=== PATIENT | female | born 1955 | race Caucasian/White ===

== ENCOUNTER 2018-07-27 00:38 | Outpatient (CLI) | payer MEDICARE, BC, SELFPAY ==
--- NOTE | 2018-07-27 10:26 | DI.MAMMO_ITS ---
SYMPTOM/DIAGNOSIS: SCREENING, Z12.31 MAMMOGRAMS: Mammograms were interpreted according to the usual protocol including computer analysis with CAD system, tomosynthesis and C view imaging. Comparison is made with prior examinations. Breast density, Category B. No masses or microcalcifications are seen. There is nothing to suggest malignancy. IMPRESSION: Negative mammogram. Routine screening is recommended. Category 1B. MQSA ASSESSMENT OF FINDINGS: Negative. Category 1. Patient will receive a letter notifying them of these results. BI-RADS category B. There are scattered areas of fibroglandular density.
== END 2018-07-27 00:58 ==
PROVIDERS: Visit Provider Nurse Practitioner Family
DX: Z12.31 Encounter for screening mammogram for malignant neoplasm of breast (principal)
CPT/HCPCS: 77063; 77067

== ENCOUNTER 2018-08-17 09:47 | Outpatient (REF) | payer MEDICARE, BC, SELFPAY ==
--- NOTE | 2018-08-17 09:30 | SKI_PTH ---
PATIENT: Felicita Velazquez LOC: [facility] U#:[id number] AGE/SX: 63/F ROOM: RE08/17/[address]: Dorina Dubois : 1955 BED: DIS: 08/17/2018 SPEC #: [id number] RECD: 08/17/18 12:59 STATUS: WARREN REAmira #: [id number] GITA: 08/17/18 09:[address]: Dorina Dubois DEPT: Surgical Specimen RECD BY: Ethel Pratt ENTERED: 08/17/18 13:00 SP TYPE: KERRIE ELMORE DR: Leeanna Conn Tissues: 1 - SKIN BIOPSY(SHAVE/PUNCH) 2 - SKIN BIOPSY(SHAVE/PUNCH) Procedures: SKIN LEVEL 4 Comments: [id number]
[2018-08-17 13:00] LABS: Cholesterol 215 mg/dL (50-200); Glucose 104 mg/dL (70-100); HDL Cholesterol 67 mg/dL (40-60); LDL CHOLESTEROL 129 mg/dL (<100); TSH (W/Ref FT4) 1.34 uIU/mL (0.358-3.74); Triglyceride 108 mg/dL (30-150)
== END 2018-08-17 10:07 ==
LOC: NCHCN 09:47
PROVIDERS: Visit Provider Nurse Practitioner
DX: E66.9 Obesity, unspecified (principal); Z68.30 Body mass index [BMI] 30.0-30.9, adult; Z13.1 Encounter for screening for diabetes mellitus; Z13.6 Encounter for screening for cardiovascular disorders; L82.1 Other seborrheic keratosis
CPT/HCPCS: 80061; 82947; 83721; 84443; 88305

== ENCOUNTER 2018-10-30 12:12 | Outpatient (REF) | payer MEDICARE, BC, SELFPAY ==
[2018-10-30 13:55] LABS: ALT 26 U/L (12-78); AST 19 U/L (15-37); Albumin 3.9 g/dL (3.4-5.0); Alkaline Phosphatase 83 U/L (46-116); Anion Gap 6.5 mmol/L (3-11); BUN 11 mg/dL (7-18); Bilirubin, Total 0.5 mg/dL (0.2-1.0); CO2 31.5 mmol/L (21.0-32.0); CREATININE 0.62 mg/dL (0.55-1.02); Calcium 9.4 mg/dL (8.5-10.1); Chloride 105 mmol/L (98-107); Glucose 99 mg/dL (70-100); Potassium 4.1 mmol/L (3.5-5.1); Sodium 143 mmol/L (136-145); Total Protein 7.1 g/dL (6.4-8.2)
== END 2018-10-30 12:32 ==
LOC: NCHCN 12:12
PROVIDERS: Visit Provider Nurse Practitioner
DX: Z01.818 Encounter for other preprocedural examination (principal); R69 Illness, unspecified
CPT/HCPCS: 80053

== ENCOUNTER 2018-12-25 13:58 | Outpatient (REF) | payer MEDICARE, BC, SELFPAY | END 2018-12-25 14:18 | LOC: NCHCN 13:58 | PROVIDERS: PCP Nurse Practitioner Family; Visit Provider Nurse Practitioner Family | DX: R30.0 Dysuria (principal) | CPT/HCPCS: 87077; 87086; 87186 ==

== ENCOUNTER 2020-08-25 14:09 | Outpatient (REF) | payer MEDICARE, BC, SELFPAY ==
[2020-08-25 20:57] LABS: HCT 41.1 % (36.0-46.0); MCH 28.5 pg (27.0-33.0); MCHC 31.6 % (32.0-36.0); MCV 90.1 fL (80-95); MPV 10.8 fL (8.0-11.0); Platelet Count 167 10^3/uL (130-400); RBC 4.56 10^6/uL (3.93-5.22); RDW 12.7 % (11.7-14.6); RDW-SD 41.9 fL; WBC 5.26 10^3/uL (4.4-10.8)
[2020-08-25 21:21] LABS: ALT 24 U/L (14-59); AST 17 U/L (15-37); Albumin 4.1 g/dL (3.4-5.0); Alkaline Phosphatase 91 U/L (46-116); Anion Gap 9.1 mmol/L (3-11); BUN 15 mg/dL (7-18); Bilirubin, Total 0.5 mg/dL (0.2-1.0); CO2 29.9 mmol/L (21.0-32.0); CREATININE 0.78 mg/dL (0.55-1.02); Calcium 9.3 mg/dL (8.5-10.1); Calculated LDL 160 mg/dL (<100); Chloride 108 mmol/L (98-107); Cholesterol 243 mg/dL (<200); Glucose 99 mg/dL (74-106); HDL Cholesterol 59 mg/dL (40-60); Potassium 4.2 mmol/L (3.5-5.1); Sodium 147 mmol/L (136-145); Total Protein 7.4 g/dL (6.4-8.2); Triglyceride 120 mg/dL (<150)
[2020-08-25 21:38] LABS: Hemoglobin A1C 5.7 % (<5.7)
== END 2020-08-25 14:29 ==
LOC: NCHCN 14:09
PROVIDERS: PCP Nurse Practitioner Family; Visit Provider Family Medicine
DX: R73.03 Prediabetes (principal); R79.89 Other specified abnormal findings of blood chemistry
CPT/HCPCS: 80053; 80061; 85027; 83036

== ENCOUNTER 2020-09-05 13:53 | Outpatient (REF) | payer MEDICARE, BC, SELFPAY ==
[2020-09-05 22:19] LABS: ESR 26 mm/hr (0-30)
[2020-09-18 16:21] LABS: ANA Interpretation Positive (Negative)
[2020-09-18 16:24] LABS: ANA Titer Pattern 1:160 Speckled
[2020-09-19 15:23] LABS: Rheumatoid Factor <15 IU/mL (<15)
== END 2020-09-05 14:13 ==
LOC: NCHCN 13:53
PROVIDERS: PCP Nurse Practitioner Family; Visit Provider Family Medicine
DX: M25.50 Pain in unspecified joint (principal)
CPT/HCPCS: 85652; 86038; 86431

== ENCOUNTER 2020-09-15 14:52 | Outpatient (REF) | payer MEDICARE, BC, SELFPAY ==
[2020-09-26 13:03] LABS: Rheumatoid Factor <15 IU/mL (<15)
[2020-09-26 13:05] LABS: ANA Interpretation 0.3 U (Negative)
== END 2020-09-15 15:12 ==
LOC: NCHCN 14:52
PROVIDERS: PCP Nurse Practitioner Family; Visit Provider Family Medicine
DX: M25.50 Pain in unspecified joint (principal)
CPT/HCPCS: 86038; 86431

== ENCOUNTER → 2022-04-09 01:58 | Outpatient (CLI) | payer MEDICARE, BC, SELFPAY ==
--- NOTE | 2022-04-09 09:45 | DI.MAMMO_ITS ---
Exam(s) MAMMO SCREENING EXAM: MAMMO SCREENING CLINICAL HISTORY: SCREENING, Z12.31. TECHNIQUE: Bilateral full field digital CC and MLO mammographic images were obtained with 3D tomosyn thesis and utilizing computer aided detection (CAD). COMPARISON: Prior mammograms were reviewed, the most recent being July 2018. FINDINGS: There has been no significant change in the appearance and distribution of the fibroglandular tissue. There are no new significant radiograph findings in left breast. In the right breast there is an asymmetric density measuring 6 x 5 millimeters seen on the MLO view l ocated approximately 12 cm in from the nipple, more evident on prior studies. Spot views of this are a recommended. No malignant-appearing microcalcification groups is region or elsewhere in either breast. There is no significant architectural distortion nor skin thickening-retraction. IMPRESSION: 1. No radiographic evidence of malignancy in left breast. 2. Asymmetric density-possible nodule in the right breast on the MLO view. Spot compression views and ultrasound recommended. BI-RADS Category 0 - Assessment Incomplete: Need additional imaging evaluation Breast Density - Category B - Scattered areas of fibroglandular density Breast density Category C or D implies that the patient has dense breast tissue. Dense breast tissue can make it harder to find cancer on a mammogram. Dense breast tissue is also associated with an incr eased risk of breast cancer. This information about the result of the mammogram report was provided to the patient to raise their awareness. Use this report when you speak with the patient about their risks for breast cancer, which includes their family history. At that time, you may recommend additional screening tests (Ultrasoun d or MRI) as these tests may add significant information. A negative radiographic report should not delay biopsy if a dominant or clinically suspicious mass is present. Up to ten percent of cancers are not identified on mammography. A negative report may reinforce clinical impression. Adenosis and dense breasts may obscure an underlying neoplasm. False positive reports average 6 to 10%. Patient will receive a letter notifying them of these results.
== END ==
PROVIDERS: PCP Nurse Practitioner Family; Visit Provider Family Medicine
DX: Z12.31 Encounter for screening mammogram for malignant neoplasm of breast (principal); R92.8 Other abnormal and inconclusive findings on diagnostic imaging of breast
CPT/HCPCS: 77063; 77067

== ENCOUNTER → 2022-04-12 00:37 | Outpatient (CLI) | payer MEDICARE, BC, SELFPAY ==
--- NOTE | 2022-04-12 | DI.US_ITS ---
Exam(s) MG MAMMO SCREEN CALL BACK UNI US BREAST RT LIMITED EXAM: MG MAMMO SCREEN CALL BACK UNI and U/S breast RT limited CLINICAL HISTORY: ASYMMETRIC DENSITY RT BREAST. TECHNIQUE: Craniocaudal and mediolateral oblique Full Field Digital Mammography views of the right b reast with Computer Aided Diagnosis followed by Tomosynthesis and right breast ultrasound. COMPARISON: Comparison is made with prior examinations. FINDINGS: Mammography/Tomosynthesis: Masses/Architectural Distortion: None seen. Microcalcifictions: No suspicious pleomorphic-type are seen. Skin Thickening/Nipple Retraction: None. Limited right breast US: Echotexture: Normal appearance of the glandular tissue. Shadowing: No suspicious foci. Cyst: There is a 2 mm cyst at the 1 o'clock position of the right breast. Solid lesions: None seen. Ductal dilation: None. IMPRESSION: 1. No evidence of malignancy is noted. 2. Unless there is more urgent need, follow-up screening mammography is recommended, as per [employer] guidelines. 3. The findings were discussed with the patient on the date of the examination. BI-RADS Category 2 - Benign Findings Breast Density - Category C - Heterogeneously dense Breast density Category C or D implies that the patient has dense breast tissue. Dense breast tissue can make it harder to find cancer on a mammogram. Dense breast tissue is also associated with an incr eased risk of breast cancer. This information about the result of the mammogram report was provided to the patient to raise their awareness. Use this report when you speak with the patient about their risks for breast cancer, which includes their family history. At that time, you may recommend additional screening tests (Ultrasoun d or MRI) as these tests may add significant information. A negative radiographic report should not delay biopsy if a dominant or clinically suspicious mass is present. Up to ten percent of cancers are not identified on mammography. A negative report may reinforce clinical impression. Adenosis and dense breasts may obscure an underlying neoplasm. False positive reports average 6 to 10%. Patient will receive a letter notifying them of these results.
== END ==
PROVIDERS: PCP Nurse Practitioner Family; Visit Provider Family Medicine
DX: Z12.31 Encounter for screening mammogram for malignant neoplasm of breast (principal); R92.8 Other abnormal and inconclusive findings on diagnostic imaging of breast; N60.01 Solitary cyst of right breast
CPT/HCPCS: 76642; 77063; 77067

== ENCOUNTER 2022-10-21 13:17 | Outpatient (REF) | payer MEDICARE, BC, SELFPAY ==
[2022-10-21 14:43] LABS: HCT 39.4 % (36.0-46.0); HGB 12.7 g/dL (11.2-15.7); MCH 28.5 pg (27.0-33.0); MCHC 32.2 % (32.0-36.0); MCV 88 fL (80-95); Platelet Count 162 10^3/uL (130-400); RBC 4.46 10^6/uL (3.93-5.22); RDW 12.9 % (11.7-14.6); RDW-SD 41.6 fL; WBC 5.42 10^3/uL (4.4-10.8)
[2022-10-21 14:59] LABS: Anion Gap 5.1 mmol/L (3-11); BUN 16 mg/dL (7-18); CO2 30.9 mmol/L (21.0-32.0); CREATININE 0.7 mg/dL (0.55-1.02); Calcium 9.4 mg/dL (8.5-10.1); Calculated LDL 155 mg/dL (<100); Chloride 107 mmol/L (98-107); Cholesterol 248 mg/dL (<200); Estimated GFR 93.56 (mL/min/1.73m2); Glucose 97 mg/dL (74-106); HDL Cholesterol 70 mg/dL (40-60); Potassium 4.3 mmol/L (3.5-5.1); Sodium 143 mmol/L (136-145); Triglyceride 119 mg/dL (<150)
== END 2022-10-21 13:18 | disposition home or self-care (01) ==
LOC: NCHCN 13:17
PROVIDERS: PCP Nurse Practitioner Family; Visit Provider Family Medicine
DX: E66.8 Other obesity (principal); Z01.818 Encounter for other preprocedural examination; Z01.812 Encounter for preprocedural laboratory examination
CPT/HCPCS: 80048; 80061; 85027

== ENCOUNTER → 2023-10-23 01:31 | Outpatient (CLI) | payer MEDICARE, BC, SELFPAY ==
--- NOTE | 2023-10-23 | DI.MAMMO_ITS ---
Exam(s) MAMMO SCREENING EXAM: MAMMO SCREENING CLINICAL HISTORY: SCREENING, Z00.00,ENCOUNTER FOR GEM ADULT MED EXAM TECHNIQUE: Bilateral full field digital CC and MLO mammographic images were obtained with 3D tomosyn thesis and utilizing computer aided detection (CAD). COMPARISON: Available for comparison. FINDINGS: Masses/Architectural Distortion: No suspicious nodules or areas of architectural distortion. Microcalcifications: No suspicious pleomorphic-type are seen. Skin Thickening/Nipple Retraction: None. IMPRESSION: 1. No significant interval change with no specific features of malignancy noted. 2. Unless there is more urgent need, screening mammography is recommended, as per [place] [employer] guidelines. BI-RADS Category 1 - Negative Breast Density - Category C - Heterogeneously dense Breast density category C or D implies that the patient has dense breast tissue. Dense breast tissue is very common and is not abnormal but dense breast tissue can make it harder to find cancer on a ma mmogram. Also, dense breast tissue may increase their breast cancer risk. This information about the result of the mammogram report was provided to the patient to raise their awareness. Use this report when you speak with the patient about their risks for breast cancer, which includes their family hist ory. At that time, you may recommend for more screening tests (Ultrasound or MRI) as they might be us eful based on their risk. A negative radiographic report should not delay biopsy if a dominant or clinically suspicious mass is present. Up to ten percent of cancers are not identified on mammography. A negative report may reinforce clinical impression. Adenosis and dense breasts may obscure an underlying neoplasm. False positive reports average 6 to 10%. Patient will receive a letter notifying them of these results.
--- OUTSIDE RECORDS SUMMARY | 2023-10-23 01:33 | XMS_ITS | Continuity of Care Document ---
Author Name Unknown Organization [facility] Ambulatory Clinics Address [address] [place] [address] Care Team Providers Care Pin Attacher Name Role Phone PAULO GUILLEN Primary Care Physician [phone] Encounter [facility] NBR [id number] Date(s): 11/27/22 - 11/27/22 [facility] Ambulatory Clinics [address], [place] [address] Encounter Diagnosis Status post right knee replacement(Discharge Diagnosis) - 11/27/22 Discharge Disposition: Home or Self Care Attending Physician: Kaylin May APRN Allergies, Adverse Reactions, Alerts Substance Reaction Severity Status Vioxx Hives Mild Active Nickel Rash Mild Active Anesthesia 1 Moderate Active 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 and recovers from anethesia slowly Assessment and Plan Future Appointments Future Scheduled Tests Laboratory* CBC w/ Diff 11/18/22 * Comprehensive Metabolic Panel 11/18/22 * Staph Nasal Complete (GeneXpert) 11/18/22 * Urinalysis with Micro if Indicated and Culture if Indicated 11/18/22 Functional Status 11/27/22 Other exposure to Infectious Disease Non e Medications Ecotrin 325 mg oral delayed release tablet 325 mg = 1 tab, Oral, BID, # 84 tab, 0 Refill(s), Pharmacy: [facility], 173, cm, 11/13/22 14:13:00 EST, Height/Length Dosing, 87, kg, 11/13/22 14:13:00 EST, Weight Dosing Start Date: 11/18/22 Stop Date: 12/30/22 Status: Ordered glucosamine 750 mg oral tablet 1,500 mg = 2 tab, Oral, Daily, # 180 tab, 0 Refill(s) Start Date: 11/27/22 Status: Ordered MiraLax oral powder for reconstitution 17 g, Oral, Daily, # 238 g, 0 Refill(s), Pharmacy: [facility], 173, cm, 11/13/22 14:13:00 EST, Height/Length Dosing, 87, kg, 11/13/22 14:13:00 EST, Weight Dosing Start Date: 11/18/22 Status: Ordered multivitamin adult, oral tablet 1 tab, Oral, Daily, # 30 tab, 0 Refill(s) Start Date: 11/13/22 Status: Ordered nystatin 100,000 units/g topical cream 1 cele, Topical, BID, PRN rash, # 15 g, 0 Refill(s) Start Date: 11/13/22 Status: Ordered oxyCODONE 5 mg oral capsule See Instructions, PRN as needed for pain, 1-2 cap Oral every 6 hr, # 60 cap, 0 Refill(s), Pharmacy:[facility], 173, cm, 11/13/22 14:13:00 EST, Height/Length Dosing, 87, kg, 11/13/22 14:13:00 EST, Weight Dosing Start Date: 11/18/22 Status: Ordered Tylenol 8 HR Arthritis Pain 650 mg oral tablet, extended release 650 mg = 1 tab, Oral, every 8 hr, # 50 tab, 0 Refill(s), Pharmacy: [facility], 173, cm,11/13/22 14:13:00 EST, Height/Length Dosing, 87, kg, 11/13/22 14:13:00 EST, Weight Dosing Start Date: 11/18/22 Status: Ordered Problem List Condition Confirmation Course Effective Dates Status Health Status Informant Asthma 1 Confirmed Active H/O: osteoarthritis Confirmed Active History of COVID-19 2 Confirmed 07/22/22 Active Osteoarthritis of right knee joint Confirmed Active Pseudocholinesterase 3 Confirmed Active Restless legs syndrome Confirmed Active 1exercise induced 2mild resp symptoms 3pt has deficeincy and takes longer to recover from anethesia Procedures Procedure Date Related Diagnosis Body Site Status Total Knee Arthroplasty (Right) 1 11/18/22 Completed Abdominal hysterectomy Co mpleted Arthroplasty of the hip C ompleted Arthroscopy of elbow Comp leted Colonoscopy Completed Tubal ligation Completed 1auto-populated from documented surgical case Vital Signs Most recent to oldest [Reference Range]: 1 Peripheral Pulse Rate [60-100 bpm] 81 bp m (11/27/22 12:22 PM) Blood Pressure [90-140/60-90 mmHg] 104/6 0mmHg (11/27/22 12:22 PM) Weight 87 kg (11/27/22 12:22 PM) Weight Measured (lbs) 191.802 lb (11/27/22 12:22 PM) Height 173 cm (11/27/22 12:22 PM) Height/Length Measured (inches) 68.11 in ch (11/27/22 12:22 PM) BSA Measured 2.04 m2 (11/27/22 12:22 PM) Body Mass Index 29.07 kg/m2 (11/27/22 12:22 PM) Social History Social History Type Response Tobacco Former tobacco user Tobacco Use:. Stopped age [age] Years. Sex Implantable Device List Procedure Provider Procedure Date Device Type Site Arthroplasty, knee, condyle and plateau; medial AND lateral compartments with or without patella resurfacing (total knee arthroplasty) Shama May DO 11/18/22 Non Biological Knee R Device Identifier Serial Number Lot or Batch Number Manufacturing Date Expiration Date Distinct Identification Code MRI Safety Implantable Status Assigning Authority Unknown Unknown [id number] Unknown 11/08/24 Unknown Unknown Active Unknown Unknown Unknown [id number] Unknown 06/20/27 Unknown Unknown Active Unknown Unknown Unknown [id number] Unknown 09/12/32 Unknown Unknown Active Unknown Unknown Unknown [id number] Unknown 12/04/26 Unknown Unknown Active Unknown Unknown Unknown [id number] Unknown 02/04/32 Unknown Unknown Active Unknown Unknown Unknown [id number] Unknown 03/08/25 Unknown Unknown Active Unknown Physician Outpatient Note * Kaylin May, LAB AIDE: PERFORM, MODIFY Event Display: Office Clinic Note Physician Authored Date: [id number] EZEQUIEL MORAES :1955 Age:67 years Sex:Female Visit Date:11/27/2022 Primary Care Physician: PAULO GUILLEN Chief Complaint S/P RIght total knee History of Present Illness Ezequiel is here today for 1 week follow-up after??right total knee arthroplasty with Dr. May, she states things are going well physical therapy is going well, she denies any drainage from herincision, she is taking Ecotrin 325 p.o. twice daily as prescribed??as well as Tylenol for discomfort, has used just a little bit of oxycodone not taking it daily whatsoever sometimes in the middle the night to get some sleep.?? She has been wearing her Dayday stocking, states she has not really worn??the??Nestor bandage lately.?? Walks in??with 1 crutch today??states she really has no??discomfort. Physical Exam Vitals & Measurements HR:??81??(Peripheral)?? BP:??104/60?? SpO2:??98%?? HT:??173??cm?? WT:??87??kg?? BMI:??29.07?? Pain Score:??1?? BSA:??2.04?? Right knee: To inspection??well approximated midline incision, no redness no erythema, minimal swelling. ??She is lacking full extension by about 5 degrees flexion today is measured at??108. ??Calf is soft she is able to dorsiflex plantarflex left ankle, there is no swelling distally about the ankle Assessment/Plan 1.??Status post right knee replacement??Z96.651 Ezequiel is doing very well, her range of motion is doing wonderfully,??she is walking with a minimal discomfort. ??She will continue Ecotrin 325 p.o. twice daily until the next visit, she can play with the Tylenol a bit, take that only if needed, she is already only taken the oxycodone when needed as well which I think is absolutely reasonable.?? She will continue to watch her incision, she candiscontinue??DAYDAY stockings,??she can always go back to wrapping it with an Nestor bandage should she become swollen.?? We will see her back in about 4 weeks time for reevaluation and x-ray unless she needs a sooner. ??She will continue to push hard with physical therapy. Problem List/Past Medical History Ongoing Asthma H/O: osteoarthritis History of COVID-19 Osteoarthritis of right knee joint Pseudocholinesterase Restless legs syndrome Historical No qualifying data Medications Ecotrin 325 mg oral delayed release tablet, 325 mg= 1 tab, Oral, BID glucosamine 750 mg oral tablet, 1500 mg= 2 tab, Oral, Daily MiraLax oral powder for reconstitution, 17 g, Oral, Daily multivitamin adult, oral tablet, 1 tab, Oral, Daily nystatin 100,000 units/g topical cream, 1 cele, Topical, BID, PRN oxyCODONE 5 mg oral capsule, See Instructions, PRN Tylenol 8 HR Arthritis Pain 650 mg oral tablet, extended release, 650 mg= 1 tab, Oral, every 8 hr Allergies Anesthesia Nickel??(Rash) Vioxx??(Hives) Electronically Signed on 11/27/22 02:54 PM Kaylin May APRN Reviewed by: Shama May, Patient Care team information Personnel Name: MINDYPAULO Address: Address: [facility] [address] [place], [place] [address]
--- OUTSIDE RECORDS SUMMARY | 2023-10-23 01:33 | XMS_ITS | Continuity of Care Document ---
Author Name Unknown Organization [facility] Address [address] [place] [id number] Care Team Providers Care Senior Human Resources Representative Name Role Phone PAULO GUILLEN Primary Care Physician Encounter LTTL_[place] FIN NBR [id number] Date(s): 11/18/22 - 11/18/[address] [id number] Encounter Diagnosis Pseudocholinesterase deficiency(Discharge Diagnosis) - 10/24/22 Status post right knee replacement(Discharge Diagnosis) - 11/18/22 Unilateral primary osteoarthritis, right knee(Final) - Other disorders of plasma-protein metabolism, not elsewhere classified(Final) - Discharge Disposition: Home f/u External Provider Attending Physician: Shama May DO Admitting Physician: Shama May DO Referring Physician: Shama May DO Allergies, Adverse Reactions, Alerts Substance Reaction Severity [...] and Culture if Indicated 11/18/22 Functional Status 11/18/22 Home Equipment Crutches 11/18/22 Living Environment Home Environment *ADL: Independent Performed By: Lillie Lira 11/18/2022 *Cognitive-Communication Skills: Independent Performed By: Lillie Lira 11/18/2022 *Instrumental ADL: Independent Performed By: Lillie Lira 11/18/2022 *Mobility: Independent Performed By: Lillie Lira 11/18/2022 Patient's Responsibilities: Personal ADL Performed By: Lillie Lira 11/18/2022 Lives With Alone, Family Number of Stairs Outside 3 Prior ADL Status Independent Prior Mobility Status Independent Prior Instrumental ADL Level Independent Prior Cognitive-Communication Skills Ind ependent 11/18/22 Patient's Responsibilities Rehab Persona l ADL 11/18/22 Anti-Embolism Device Activity: Applied Anti-Embolism Site Condition: No complic ations 11/18/22 ADLs Independent Antiembolism Device Graduated compressio n stockings, knee high, left, Intermittent pneumatic compression devices, knee high, left Other exposure to Infectious Disease Non e Medications Ecotrin 325 mg oral delayed release tablet 325 mg = 1 tab, Oral, BID, # 84 tab, 0 Refill(s), Pharmacy: [facility], 173, cm, 11/13/22 14:13:00 EST, Height/Length Dosing, 87, kg, 11/13/22 14:13:00 EST, Weight Dosing Start Date: 11/18/22 Stop Date: 12/30/22 Status: Ordered MiraLax oral powder for reconstitution 17 g, Oral, Daily, # 238 g, 0 Refill(s), Pharmacy: [facility], 173, cm, 11/13/22 14:13:00 EST, Height/Length [...] 6 hr, # 60 cap, 0 Refill(s), Pharmacy:[facility], 173, cm, 11/13/22 14:13:00 EST, Height/Length Dosing, 87, kg, 11/13/22 14:13:00 EST, Weight Dosing Start Date: 11/18/22 Status: Ordered Tylenol 8 HR Arthritis Pain 650 mg oral tablet, extended release 650 mg = 1 tab, Oral, every 8 hr, # 50 tab, 0 Refill(s), Pharmacy: [facility], 173, cm,11/13/22 14:13:00 EST, Height/Length Dosing, [...] ligation Completed 1auto-populated from documented surgical case Results Radiology Reports * Exam Date Time Procedure Performing Provider Status 11/18/22 9:18 AM XR Knee 3 Views Right Lisbeth Appiah; Cory (Verified) Notes: (XR Knee 3 Views Right) Reason For Exam: s/p right TKA XR Knee 3 Views Right EXAM DESCRIPTION: XR Knee 3 Views Right 11/18/2022 INDICATION: S/P RIGHT TKA COMPARISON: 02/28/2022 IMPRESSION: Status post right total knee arthroplasty with satisfactory postoperative appearance. Regional soft tissue and intra-articular air consistent with recent postoperative state. JOB #: [id number] Final Signed by: Bienvenido Wilburn MD Signed (Electronic Signature): 11/18/2022 9:22 am Vital Signs Most recent to oldest [Reference Range]: 1 2 3 Temperature Temporal Artery [36-38 Deg C] 37.1 Deg C (11/18/22 11:09 AM) 36.1 Deg C (11/18/22 9:45 AM) 36 Deg C (11/18/22 9:26 AM) Temperature Temporal Artery (DegF) [97.3-100 Deg F] 98.78 Deg F (11/18/22 11:09 AM) 96.98 Deg F *LOW* (11/18/22 9:45 AM) 96.8 Deg F *LOW* (1/9/23 9:26 AM) Peripheral Pulse Rate [60-100 bpm] 64 bpm (11/18/22 12:00 PM) 53 bpm *LOW* (11/18/22 11:30 AM) 50 bpm *LOW* (11/18/22 11:15 AM) Heart Rate Monitored [60-100 bpm] 59 bpm *LOW* (11/18/22 6:29 AM) Respiratory Rate [12-24 br/min] 18 br/min (11/18/22 6:29 AM) Blood Pressure [90-140/60-90 mmHg] 142/77mmHg *HI* (11/18/22 12:00 PM) 142/81mmHg *HI* (11/18/22 11:30 AM) 129/75mmHg (11/18/22 11:15 AM) Mean Arterial Pressure, Cuff [65-140 mmHg] 99 mmHg (11/18/22 12:00 PM) 101 mmHg (11/18/22 11:30 AM) 93 mmHg (11/18/22 11:15 AM) Mean Arterial Pressure Cuff 97 mmHg (11/18/22 12:00 PM) 99 mmHg (11/18/22 11:30 AM) 92 mmHg (11/18/22 11:15 AM) Weight 87.000 kg (11/13/22 2:07 PM) 91.000 kg (11/13/22 12:15 PM) Weight Dosing 87.000 kg (11/13/22 2:07 PM) 91.000 kg (11/13/22 12:15 PM) Height 173.000 cm (11/13/22 2:07 PM) 173.000 cm (11/13/22 12:15 PM) Height/Length Dosing 173.000 cm (11/13/22 2:07 PM) 173.000 cm (11/13/22 12:15 PM) Body Mass Index 30.410 kg/m2 (11/13/22 12:15 PM) Social History Social History Type Response [...] Safety Implantable Status Assigning Authority Unknown Unknown [id number] Unknown 11/08/24 Unknown Unknown Active Unknown Unknown Unknown [id number] Unknown 06/20/27 Unknown Unknown Active Unknown Unknown Unknown [id number] Unknown 09/12/32 Unknown Unknown Active Unknown Unknown Unknown [id number] Unknown 12/04/26 Unknown Unknown Active Unknown Unknown Unknown [id number] Unknown 02/04/32 Unknown Unknown Active Unknown Unknown Unknown [id number] Unknown 03/08/25 Unknown Unknown Active Unknown Hospital Discharge Instructions Patient Education 11/10/2022 16:01:08 Dinah - [facility] Discharge Instructions (CUSTOM) [facility] Discharge Instructions Name: Ezequiel Velazquez Surgery: Right knee replacement General Instructions: ??? Keep limb elevated as much as possible in the next 1-2 weeks in between PT / exercises. Foot must be 12 inches above heart for severe swelling. Do not sit with leg dangling below you for longer than a few minutes at a time-it exacerbates swelling! ??? Keep dressing clean and dry. ??? Apply ice to affected area 3-5 times daily for 20-30 minutes at a time. Dressing Instructions: ??? KNEE REPLACEMENTS: Physical therapy will remove your bandage at the first visit if you are an outpatient. If you stayed overnight, we removed your bandage. After dressing removal you may shower-do not submerge the wound in fluid! Do not pick at the wound. Do not apply lotions/creams/salves. EVERY MORNING- put on DAYDAY stocking-then miles bandage from groin to top of DAYDAY stocking- ON EVERY MORNINGOFF EVERY NIGHT FOR FIRST 2 WEEKS. This is to help manage swelling! ??? SWELLING AND BRUISING IS EXPECTED! BRUISING MIGHT SHOW UP ALONG THE WHOLE LEG. Extensive bruising is common. The joint will feel warm because it is likely swollen. Discharge medications: Pain Medication (narcotic): Oxycodone use sparingly, this should make pain tolerable not completely???pain free?? Pain medicine alters your balance/coordination-you should not drive or operate heavy machinery while taking pain medicine. Blood Clot Prevention: Ecotrin 325mg twice a day x 6 weeks Other Medications: Tylenol for pain over next few weeks, 650mg every 6-8 hours ALL narcotics WILL cause constipation! We suggest: Miralax Refills of pain medication: We require 24 hours notice for refills. In order to refill a medication before the weekend all requests must be in by at 12:00pm. All refill requests will be taken at [phone]. This is your responsibility to keep track of how much pain medication you have left. Activity: ??? Full Weight Bearing as tolerated with gentle movement of the extremity Therapy/Visiting Nurses: ??? Physical Therapy: this is usually already set up by the time you have surgery- if it has not been, please call to set up your therapy appointment within 1 day. If you are having issues getting this started please call our office for help Complications: If you experience the following call [phone]. Please try to call with questions during normal business hours. After hour calls should be for emergency use only. ??? Red streaking extending out away from wound ??? Drainage from wound- small amount of blood is ok, pus is not ??? Fever (101 or above), nausea, vomiting-- inability to drink fluids Follow up Care: POST OP APPOINTMENT Date/Time: 11/27/22 @ 12:30 [facility] Kaylin May Return to Work/School: not until follow up Patient Signature Please keep this handy at home so that you may refer to it if you think of a question. 11/10/2022 15:59:33 Total Knee Replacement, Care After Total Knee Replacement, Care After This sheet gives you information about how to care for yourself after your procedure. Your health care provider may also give you more specific instructions. If you have problems or questions, contact your health care provider. What can I expect after the procedure? After the procedure, it is common to have: ??? Redness, pain, and swelling at the incision area. ??? Stiffness. ??? Discomfort. ??? A small amount of blood or clear fluid coming from your incision. Follow these instructions at home: Medicines ??? Take bzce-bjl-svlxqkt and prescription medicines only as told by your health care provider. ??? If you were prescribed a blood thinner (anticoagulant), take it as told by your health care provider. ??? Ask your health care provider if the medicine prescribed to you: ??? Requires you to avoid driving or using machinery. ??? Can cause constipation. You may need to take these actions to prevent or treat constipation: ??? Drink enough fluid to keep your urine pale yellow. ??? Take aszn-nxm-bcpfcmy or prescription medicines. ??? Eat foods that are high in fiber, such as beans, whole grains, and fresh fruits and vegetables. ??? Limit foods that are high in fat and processed sugars, such as fried or sweet foods. Incision care ??? Follow instructions from your health care provider about how to take care of your incision. Make sure you: ??? Wash your hands with soap and water for at least 20 seconds before and after you change your bandage (dressing). If soap and water are not available, use hand steel manager. ??? Change your dressing as told by your health care provider. ??? Leave stitches (sutures), marlon, skin glue, or adhesive strips in place. These skin closures may need to stay in place for 2 weeks or longer. If adhesive strip edges start to loosen and curl up, you may trim the loose edges. Do not remove adhesive strips completely unless your health care provider tells you to do that. ??? Do not take baths, swim, or use a hot tub until your health care provider approves. ??? Check your incision area every day for signs of infection. Check for: ??? More redness, swelling, or pain. ??? More fluid or blood. ??? Warmth. ??? Pus or a bad smell. Activity ??? Rest as told by your health care provider. ??? Avoid sitting for a long time without moving. Get up to take short walks every 1???2 hours. This is important to improve blood flow and breathing. Ask for help if you feel weak or unsteady. ??? Follow instructions from your health care provider about using a walker, crutches, or a cane. ??? You may use your legs to support (bear) your body weight as told by your health care provider. Follow instructions about how much weight you may safely support on your affected leg (weight-bearing restrictions). ??? A physical therapist may show you how to get out of a bed and chair and how to go up and down stairs. You will first do this with a walker, crutches, or a cane and then without any of these devices. ??? Once you are able to walk without a limp, you may stop using a walker, crutches, or a cane. ??? Do exercises as told by your health care provider or physical therapist. ??? Avoid high-impact activities, including running, jumping rope, and doing jumping jacks. ??? Do not play contact sports until your health care provider approves. ??? Return to your normal activities as told by your health care provider. Ask your health care provider what activities are safe for you. Managing pain, stiffness, and swelling ??? If directed, put ice on your knee. To do this: ??? Put ice in a plastic bag or use the icing device (cold flow pad) that you were given. Follow instructions from your health care provider about how to use the icing device. ??? Place a towel between your skin and the bag or between your skin and the icing device. ??? Leave the ice on for 20 minutes, 2???3 times a day. ??? Remove the ice if your skin turns bright red. This is very important. If you cannot feel pain, heat, or cold, you have a greater risk of damage to the area. ??? Move your toes often to reduce stiffness and swelling. ??? Raise (elevate) your leg above the level of your heart while you are sitting or lying down. ??? Use several pillows to keep your leg straight. ??? Do not put a pillow just under the knee. If the knee is bent for a long time, this may lead to stiffness. ??? Wear elastic knee support as told by your health care provider. Safety ??? To help prevent falls, keep floors clear of objects you may trip over. Place items that you mayneed within easy reach. ??? Wear an apron or tool belt with pockets for carrying objects. This leaves your hands free to help with your balance. ??? Ask your health care provider when it is safe to drive. General instructions ??? Wear compression stockings as told by your health care provider. These stockings help to prevent blood clots and reduce swelling in your legs. ??? Continue with breathing exercises. This helps prevent lung infection. ??? Do not use any products that contain nicotine or tobacco. These products include cigarettes, chewing tobacco, and vaping devices, such as e-cigarettes. These can delay healing after surgery. If you need help quitting, ask your health care provider. ??? Tell your health care provider if you plan to have dental work. Also: ??? Tell your dentist about your joint replacement. ??? Ask your health care provider if there are any special instructions you need to follow before having dental care and routine cleanings. ??? Keep all follow-up visits. This is important. Contact a health care provider if: ??? You have a fever or chills. ??? You have a cough or feel short of breath. ??? Your medicine is not controlling your pain. ??? You have any of these signs of infection: ??? More redness, swelling, or pain around your incision. ??? More fluid or blood coming from your incision. ??? Warmth coming from your incision. ??? Pus or a bad smell coming from your incision. ??? You fall. Get help right away if: ??? You have severe pain. ??? You have trouble breathing. ??? You have chest pain. ??? You have redness, swelling, pain, or warmth in your calf or leg. ??? Your incision breaks open after sutures or marlon are removed. These symptoms may represent a serious problem that is an emergency. Do not wait to see if the symptoms will go away. Get medical help right away. Call your local emergency services (911 in the [place] Do not drive yourself to the hospital. Summary ??? After the procedure, it is common to have pain and swelling at the incision area, a small amount of blood or fluid coming from your incision, and stiffness. ??? Follow instructions from your health care provider about how to take care of your incision. ??? Use crutches, a walker, or a cane as told by your health care provider. This information is not intended to replace advice given to you by your health care provider. Make sure you discuss any questions you have with your health care provider. Document Revised: 04/17/2021 Document Reviewed: 04/17/2021 [employer] Patient Education ?? 2021 [employer] Discharge instructions * Naye Petty: PERFORM Event Display: Discharge Instructions Authored Date: [id number] EZEQUIEL VELAZQUEZ :1955 Age:67 years Sex:Female Visit Date:11/18/2022 Primary Care Physician: PAULO GUILLEN Hospital Discharge Instructions We would like to thank you for allowing us to assist you with your healthcare needs. The following includes patient education materials and information regarding your injury/illness. After you leave the hospital, you may get your health information including your test results, physician notes and discharge information by accessing your Patient Portal. Your Next Steps Scheduled Future Appointments Friday 12:30 PM EST ?? Medications What How Much When Why Instructions Next Dose New acetaminophen (Tylenol 8 HR Arthritis Pain 650 mgoral tablet, extended release) 1 tab Oral (given by mouth) Every 8 hours Pseudocholinesterase deficiency Pickup at [facility] New aspirin (Ecotrin 325 mg oral delayed release tablet) 1 tab Oral (given by mouth) 2 times a day Pseudocholinesterase deficiency Duration: 6 weeks Pickup at [facility] New oxyCODONE (oxyCODONE 5 mg oral capsule) See instructions Pseudocholinesterase deficiency 1-2 cap Oral every 6 hr, As needed for as needed for pain ?? Pickup at [facility] New polyethylene glycol 3350 (MiraLax oral powder for reconstitution) 17 Gram Oral (given by mouth) Every day Pseudocholinesterase deficiency Pickup at [facility] Changed nystatin topical (nystatin 100,000 units/ g topical cream) 1 Application Topical (on the skin) 2 times a day as needed for rash Unchanged multivitamin (multivitamin adult, oral tablet) 1 tab Oral (given by mouth) Every day Pharmacy Information [facility]: [address] [place] [address] [phone] Your Summary Your Care Team Admitting Physician - Shama May, DO Attending Physician - Shama May, DO Primary Care Physician - PAULO GUILLEN Referring Physician - Shama May, DO Your Diagnosis Pseudocholinesterase deficiency Status post right knee replacement Problems Ongoing - Any problem that you are currently receiving treatment for. Asthma H/O: osteoarthritis History of COVID-19 Osteoarthritis of right knee joint Pseudocholinesterase Restless legs syndrome Procedures History ???Abdominal hysterectomy???Arthroplasty of the hip???Arthroscopy of elbow???Colonoscopy???Tubal ligation Tests Performed/Pending XR Knee 3 Views Right Discharge Vitals Temperature??(Temporal Artery) 98.8 ??F (37.1 ??C) Heart Rate??(Peripheral) 55 Respiratory Rate?? 18 Blood Pressure?? 137/74?? Allergies Anesthesia Nickel??(Rash) Vioxx??(Hives) Education Materials [facility] Discharge Instructions ? Name: Ezequiel [place] Surgery: Right knee replacement ? General Instructions: ? Keep limb elevated as much as possible in the next 1-2 weeks in between PT / exercises. Foot must be 12 inches above heart for severe swelling. Do not sit with leg dangling below you for longer than a few minutes at a time-it exacerbates swelling! ? Keep dressing clean and dry. ? Apply ice to affected area 3-5 times daily for 20-30 minutes at a time. Dressing Instructions: ? KNEE REPLACEMENTS: Physical therapy will remove your bandage at the first visit if you are an outpatient. If you stayed overnight, we removed your bandage. After dressing removal you may shower-do not submerge the wound in fluid! Do not pick at the wound. Do not apply lotions/creams/salves. EVERY MORNING- put on DAYDAY stocking-then miles bandage from groin to top of DAYDAY stocking- ON EVERY MORNING OFFEVERY NIGHT FOR FIRST 2 WEEKS. This is to help manage swelling! ? SWELLING AND BRUISING IS EXPECTED! BRUISING MIGHT SHOW UP ALONG THE WHOLE LEG. Extensive bruising is common. The joint will feel warm because it is likely swollen. Discharge medications: Pain Medication (narcotic): Oxycodone use sparingly, this should make pain tolerable not completely???pain free?? Pain medicine alters your balance/coordination-you should not drive or operate heavy machinery while taking pain medicine. Blood Clot Prevention: Ecotrin 325mg twice a day x 6 weeks ? Other Medications: Tylenol for pain over next few weeks, 650mg every 6-8 hours ? ALL narcotics WILL cause constipation! We suggest: Miralax ? Refills of pain medication: We require 24 hours notice for refills. In order to refill a medication before the weekend all requests must be in by at 12:00pm. All refill requests will be taken at [phone]. This is your responsibility to keep track of how much pain medication you have left. ? Activity: ? Full Weight Bearing as tolerated with gentle movement of the extremity Therapy/Visiting Nurses: ? Physical Therapy: this is usually already set up by the time you have surgery- if it has not been, please call to set up your therapy appointment within 1 day. If you are having issues getting this started please call our office for help ? Complications: If you experience the following call [phone]. Please try to call with questions during normal business hours. After hour calls should be for emergency use only. ? Red streaking extending out away from wound ? Drainage from wound- small amount of blood is ok, pus is not ? Fever (101 or above), nausea, vomiting-- inability to drink fluids ? Follow up Care: ? POST OP APPOINTMENT Date/Time: 11/27/22 @ 12:30 [facility] Kaylin May ? Return to Work/School: not until follow up ? Patient Signature ? Please keep this handy at home so that you may refer to it if you think of a question. Total Knee Replacement, Care After This sheet gives you information about how to care for yourself after your procedure. Your health care provider may also give you more specific instructions. If you have problems or questions, contact your health care provider. What can I expect after the procedure? After the procedure, it is common to have: ? Redness, pain, and swelling at the incision area. ? Stiffness. ? Discomfort. ? A small amount of blood or clear fluid coming from your incision. Follow these instructions at home: Medicines ? Take hgfr-khe-aurlcfk and prescription medicines only as told by your health care provider. ? If you were prescribed a blood thinner (anticoagulant), take it as told by your health care provider. ? Ask your health care provider if the medicine prescribed to you: ? Requires you to avoid driving or using machinery. ? Can cause constipation. You may need to take these actions to prevent or treat constipation: ? Drink enough fluid to keep your urine pale yellow. ? Take xxls-bqs-csiomyl or prescription medicines. ? Eat foods that are high in fiber, such as beans, whole grains, and fresh fruits and vegetables. ? Limit foods that are high in fat and processed sugars, such as fried or sweet foods. Incision care ? Follow instructions from your health care provider about how to take care of your incision. Make sure you: ? Wash your hands with soap and water for at least 20 seconds before and after you change your bandage (dressing). If soap and water are not available, use hand steel manager. ? Change your dressing as told by your health care provider. ? Leave stitches (sutures), marlon, skin glue, or adhesive strips in place. These skin closures may need to stay in place for 2 weeks or longer. If adhesive strip edges start to loosen and curl up, you may trim the loose edges. Do not remove adhesive strips completely unless your health care provider tells you to do that. ? Do not take baths, swim, or use a hot tub until your health care provider approves. ? Check your incision area every day for signs of infection. Check for: ? More redness, swelling, or pain. ? More fluid or blood. ? Warmth. ? Pus or a bad smell. Activity ? Rest as told by your health care provider. ? Avoid sitting for a long time without moving. Get up to take short walks every 1???2 hours. This isimportant to improve blood flow and breathing. Ask for help if you feel weak or unsteady. ? Follow instructions from your health care provider about using a walker, crutches, or a cane. ? You may use your legs to support (bear) your body weight as told by your health care provider. Follow instructions about how much weight you may safely support on your affected leg (weight-bearing restrictions). ? A physical therapist may show you how to get out of a bed and chair and how to go up and down stairs. You will first do this with a walker, crutches, or a cane and then without any of these devices. ? Once you are able to walk without a limp, you may stop using a walker, crutches, or a cane. ? Do exercises as told by your health care provider or physical therapist. ? Avoid high-impact activities, including running, jumping rope, and doing jumping jacks. ? Do not play contact sports until your health care provider approves. ? Return to your normal activities as told by your health care provider. Ask your health care provider what activities are safe for you. Managing pain, stiffness, and swelling ? If directed, put ice on your knee. To do this: ? Put ice in a plastic bag or use the icing device (cold flow pad) that you were given. Follow instructions from your health care provider about how to use the icing device. ? Place a towel between your skin and the bag or between your skin and the icing device. ? Leave the ice on for 20 minutes, 2???3 times a day. ? Remove the ice if your skin turns bright red. This is very important. If you cannot feel pain, heat, or cold, you have a greater risk of damage to the area. ? Move your toes often to reduce stiffness and swelling. ? Raise (elevate) your leg above the level of your heart while you are sitting or lying down. ? Use several pillows to keep your leg straight. ? Do not put a pillow just under the knee. If the knee is bent for a long time, this may lead to stiffness. ? Wear elastic knee support as told by your health care provider. Safety ? To help prevent falls, keep floors clear of objects you may trip over. Place items that you may need within easy reach. ? Wear an apron or tool belt with pockets for carrying objects. This leaves your hands free to help with your balance. ? Ask your health care provider when it is safe to drive. General instructions ? Wear compression stockings as told by your health care provider. These stockings help to prevent blood clots and reduce swelling in your legs. ? Continue with breathing exercises. This helps prevent lung infection. ? Do not use any products that contain nicotine or tobacco. These products include cigarettes, chewing tobacco, and vaping devices, such as e-cigarettes. These can delay healing after surgery. If you need help quitting, ask your health care provider. ? Tell your health care provider if you plan to have dental work. Also: ? Tell your dentist about your joint replacement. ? Ask your health care provider if there are any special instructions you need to follow before having dental care and routine cleanings. ? Keep all follow-up visits. This is important. Contact a health care provider if: ? You have a fever or chills. ? You have a cough or feel short of breath. ? Your medicine is not controlling your pain. ? You have any of these signs of infection: ? More redness, swelling, or pain around your incision. ? More fluid or blood coming from your incision. ? Warmth coming from your incision. ? Pus or a bad smell coming from your incision. ? You fall. Get help right away if: ? You have severe pain. ? You have trouble breathing. ? You have chest pain. ? You have redness, swelling, pain, or warmth in your calf or leg. ? Your incision breaks open after sutures or marlon are removed. These symptoms may represent a serious problem that is an emergency. Do not wait to see if the symptoms will go away. Get medical help right away. Call your local emergency services (911 in the [place] Do not drive yourself to the hospital. Summary ? After the procedure, it is common to have pain and swelling at the incision area, a small amount ofblood or fluid coming from your incision, and stiffness. ? Follow instructions from your health care provider about how to take care of your incision. ? Use crutches, a walker, or a cane as told by your health care provider. This information is not intended to replace advice given to you by your health care provider. Make sure you discuss any questions you have with your health care provider. Document Revised: 04/17/2021 Document Reviewed: 04/17/2021 [employer] Patient Education ?? 2021 [employer] Patient Name:EZEQUIEL VELAZQUEZ I have received this information and my questions have been answered. Patient/Promotions Team Leader Name: Patient/Promotions Team Leader Signature: Relationship to Patient: Witness Name/Signature: Date: Electronically Signed on: 11/18/2022 11:12 ESTSigned by:NIKKI * Event Display: Discharge Instructions History and physical note * Event Display: History and Physical Update Orthopaedic surgery Outpatient Note * Sherice Jordan: PERFORM Event Display: Orthopedic Office Clinic Note Authored Date: * Sherice Jordan: PERFORM Event Display: Orthopedic Office Clinic Note Authored Date: XR Knee - right 3 Views * Bienvenido Wilburn MD: VERIFY, VERIFY Event Display: Report EXAM DESCRIPTION: XR Knee 3 Views Right 11/18/2022 INDICATION: S/P RIGHT TKA COMPARISON: 02/28/2022 IMPRESSION: Status post right total knee arthroplasty with satisfactory postoperative appearance. Regional soft tissue and intra-articular air consistent with recent postoperative state. JOB #: [id number] Final Signed by: Bienvenido Wilburn MD Signed (Electronic Signature): 11/18/2022 9:22 am Patient Care team information Personnel Name: PAULO GUILLEN Address: Address: [facility] [address] [place] [address]-
--- OUTSIDE RECORDS SUMMARY | 2023-10-23 01:33 | XMS_ITS | Continuity of Care Document ---
Author Name Unknown Organization [facility] Address [address] [place] [id number] Care Team Providers Care Nurse Midwife Name Role Phone PAULO GUILLEN Primary Care Physician Encounter [facility] NBR [id number] Date(s): 01/01/23 - 01/01/[address] [address]- Discharge Disposition: Home or Self Care Attending Physician: Shama May DO Admitting Physician: Shama May DO Allergies, Adverse Reactions, Alerts Substance Reaction Severity Status Vioxx Hives Mild Active Nickel Rash Mild Active Anesthesia 1 Moderate Active 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 and recovers from anethesia slowly Assessment and Plan Future Scheduled Tests Laboratory* CBC w/ Diff 11/18/22 * Comprehensive Metabolic Panel 11/18/22 * Staph Nasal Complete (GeneXpert) 11/18/22 * Urinalysis with Micro if Indicated and Culture if Indicated 11/18/22 Medications glucosamine 750 mg oral tablet 1,500 mg = 2 tab, Oral, Daily, # 180 tab, 0 Refill(s) Start Date: 11/27/22 Status: Ordered MiraLax oral powder for reconstitution 17 g, Oral, Daily, # 238 g, 0 Refill(s), Pharmacy: [facility], 173, cm, 11/13/22 14:13:00 EST, Height/Length Dosing, 87, kg, 11/13/22 14:13:00 EST, Weight Dosing Start Date: 11/18/22 Status: Ordered multivitamin adult, oral tablet 1 tab, Oral, Daily, # 30 tab, 0 Refill(s) Start Date: 11/13/22 Status: Ordered nystatin 100,000 units/g topical cream 1 cele, Topical, BID, PRN rash, # 15 g, 0 Refill(s) Start Date: 11/13/22 Status: Ordered Tylenol 8 HR Arthritis Pain 650 mg oral tablet, extended release 650 mg = 1 tab, Oral, every 8 hr, # 50 tab, 0 Refill(s), Pharmacy: [facility], 173, cm,11/13/22 14:13:00 EST, [...] Exam Date Time Procedure Performing Provider Status 01/01/23 11:21 AM XR Knee Complete 4+ Views Right Marshall Thomas; Cory (Verified) Notes: (XR Knee Complete 4+ Views Right) Reason For Exam: f/u right TKA XR Knee Complete 4+ Views Right EXAM DESCRIPTION: XR Knee Complete 4+ Views Right 01/01/2023 INDICATION: F/U RIGHT TKA COMPARISON: 11/18/2022 IMPRESSION: Status post right total knee arthroplasty with stable satisfactory appearance. No focal lytic or destructive changes. No acute fracture or dislocation. JOB #: [id number] Final Signed by: Bienvenido Wilburn MD Signed (Electronic Signature): 01/01/2023 11:32 am Social History Social History Type Response Tobacco Former tobacco user Tobacco Use:. Stopped age [age] Years. Sex Implantable Device List Procedure Provider Procedure Date Device Type Site Arthroplasty, knee, condyle and plateau; medial AND lateral compartments with or without patella resurfacing (total knee arthroplasty) Shama May, 11/18/22 Non Biological Knee R Device Identifier Serial Number Lot or Batch Number Manufacturing Date Expiration Date Distinct Identification Code MRI Safety Implantable Status Assigning Authority Unknown Unknown [id number] Unknown 11/08/24 Unknown Unknown Active Unknown Unknown Unknown [id number] Unknown 06/20/27 Unknown Unknown Active Unknown Unknown Unknown [id number] Unknown 09/12/32 Unknown Unknown Active Unknown Unknown Unknown [id number] Unknown 12/04/26 Unknown Unknown Active Unknown Unknown Unknown [id number] Unknown 02/04/32 Unknown Unknown Active Unknown Unknown Unknown [id number] Unknown 03/08/25 Unknown Unknown Active Unknown XR Knee - right GE 4 Views * Bienvenido Wilburn MD: VERIFY, VERIFY, VERIFY Event Display: Report EXAM DESCRIPTION: XR Knee Complete 4+ Views Right 01/01/2023 INDICATION: F/U RIGHT TKA COMPARISON: 11/18/2022 IMPRESSION: Status post right total knee arthroplasty with stable satisfactory appearance. No focal lytic or destructive changes. No acute fracture or dislocation. JOB #: [id number] Final Signed by: Bienvenido Wilburn MD Signed (Electronic Signature): 01/01/2023 11:32 am Patient Care team information Care Team Personnel Name: PAULO GUILLEN Position: No Access Member Role: Primary Care Physician Address: Address: [facility] [address] [place], [place] [address]
--- OUTSIDE RECORDS SUMMARY | 2023-10-23 01:33 | XMS_ITS | Continuity of Care Document ---
Author Name Unknown Organization [facility] Address [address] [place] [address] Care Team Providers Care Quick Service Technician Name Role Phone PAULO GUILLEN Primary Care Physician Encounter [facility] NBR [id number] Date(s): 01/01/23 - 01/01/23 [facility] [address] [place], [place] [address] Encounter Diagnosis History of total knee arthroplasty(Discharge Diagnosis) - 01/01/23 Discharge Disposition: Home or Self Care Attending Physician: Shama May DO Allergies, Adverse Reactions, [...] and Culture if Indicated 11/18/22 Functional Status 01/01/23 Recent Travel History No recent travel Medications glucosamine 750 mg oral tablet 1,500 mg = 2 tab, Oral, Daily, # 180 tab, 0 Refill(s) Start Date: 11/27/22 Status: Ordered MiraLax oral powder for reconstitution 17 g, Oral, Daily, # 238 g, 0 Refill(s), Pharmacy: [facility], 173, cm, 11/13/22 14:13:00 [...] hr, # 50 tab, 0 Refill(s), Pharmacy: [facility], 173, cm,11/13/22 14:13:00 EST, [...] Range]: 1 Peripheral Pulse Rate [60-100 bpm] 76 bp m (01/01/23 11:21 AM) Blood Pressure [90-140/60-90 mmHg] 112/7 2mmHg (01/01/23 11:21 AM) Weight 86.18 kg (01/01/23 11:21 AM) Weight Measured (lbs) 189.994 lb (01/01/23 11:21 AM) Height 175.26 cm (01/01/23 11:21 AM) Height/Length Measured (inches) 69 inch (01/01/23 11:21 AM) BSA Measured 2.05 m2 (01/01/23 11:21 AM) Body Mass Index 28.06 kg/m2 (01/01/23 11:21 AM) Social History Social History Type Response Tobacco [...] Safety Implantable Status Assigning Authority Unknown Unknown [id number] Unknown 11/08/24 Unknown Unknown Active Unknown Unknown Unknown [id number] Unknown 06/20/27 Unknown Unknown Active Unknown Unknown Unknown [id number] Unknown 09/12/32 Unknown Unknown Active Unknown Unknown Unknown [id number] Unknown 12/04/26 Unknown Unknown Active Unknown Unknown Unknown [id number] Unknown 02/04/32 Unknown Unknown Active Unknown Unknown Unknown [id number] Unknown 03/08/25 Unknown Unknown Active Unknown Physician Outpatient Note * Shama May, DO: PERFORM Event Display: Office Clinic Note Physician Authored Date: [id number] EZEQUIEL MORAES :1955 Age:67 years Sex:Female Visit Date:01/01/2023 Primary Care Physician: PAULO GUILLEN Chief Complaint post op right total knee History of Present Illness 6 weeks status post right total knee doing extremely well. ??She is already been discharged from physical therapy. Physical Exam Vitals & Measurements HR:??76??(Peripheral)?? BP:??112/72?? SpO2:??97%?? HT:??175.26??cm?? WT:??86.18??kg?? BMI:??28.06?? BSA:??2.05?? She ambulates??into the office with a normal gait unassisted. ??Right knee midline incision nicely healed.?? She has nearly full extension. ??She is flexing to about 140 degrees. ??Good ligamentous stability in all planes. ??Normal muscle tone and neurovascular intact distally.?? X-rays look good on the [place] system. Assessment/Plan History of total knee arthroplasty??Z96.659 Progress activity as as tolerated. ??Continue home exercises.?? Dental prophylaxis reviewed. Problem List/Past Medical History Ongoing Asthma H/O: osteoarthritis History of COVID-19 Osteoarthritis of right knee joint Pseudocholinesterase Restless legs syndrome Historical No qualifying data Medications glucosamine 750 mg oral tablet, 1500 mg= 2 tab, Oral, Daily MiraLax oral powder for reconstitution, 17 g, Oral, Daily multivitamin adult, oral tablet, 1 tab, Oral, Daily nystatin 100,000 units/g topical cream, 1 cele, Topical, BID, PRN Tylenol 8 HR Arthritis Pain 650 mg oral tablet, extended release, 650 mg= 1 tab, Oral, every 8 hr Allergies Anesthesia Nickel??(Rash) Vioxx??(Hives) Electronically Signed on 01/01/23 11:42 AM Shama May, Patient Care team information Care Team Personnel Name: PAULO GUILLEN Position: No Access Member Role: Primary Care Physician Address: Address: [facility] [address] [place], [place] [address]
--- OUTSIDE RECORDS SUMMARY | 2023-10-23 01:33 | XMS_ITS | Continuity of Care Document ---
Author Name Unknown Organization [facility] Address [address] [place] [id number] Care Team Providers Care Environmental Services Technician Name Role Phone PAULO GUILLEN Primary Care Physician Encounter [facility] FIN NBR [id number] Date(s): 11/13/22 - 11/13/[address] [address]- Discharge Disposition: Home or Self Care Attending Physician: Kaylin May APRN Admitting Physician: Kaylin May APRN Referring Physician: Kaylin May APRN Allergies, Adverse Reactions, Alerts Substance Reaction Severity Status Vioxx Hives Mild Active Nickel Rash Mild Active Anesthesia 1 Moderate Active 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 and recovers from anethesia slowly Assessment and Plan Future Appointments Medications multivitamin adult, oral tablet 1 tab, Oral, Daily, # 30 tab, 0 Refill(s) Start Date: 11/13/22 Status: Ordered nystatin 100,000 units/g topical cream 1 cele, Topical, BID, PRN rash, # 15 g, 0 Refill(s) Start Date: 11/13/22 Status: Ordered Problem List Condition Confirmation Course [...] Procedure Date Related Diagnosis Body Site Status Abdominal hysterectomy Co mpleted Arthroplasty of the hip C ompleted Arthroscopy of elbow Comp leted Colonoscopy Completed Tubal ligation Completed Results Laboratory List Name Date CBC w/ Diff 11/13/22 Comprehensive Metabolic Panel 11/13/22 Staph Nasal Complete (GeneXpert) 1/4/23 Urinalysis with Micro if Indicated and C ulture if Indicated 11/13/22 Automated Diff 11/13/22 Most recent to oldest [Reference Range]: 1 WBC [4.8-10.8 K/mcL] 5.6 K/mcL (11/13/22 11:54 AM) RBC [4.20-6.10 Million/mcL] 4.51 Million /mcL (11/13/22 11:54 AM) Neutro Auto [42.2-75.2 %] 51.9 % (11/13/22 11:54 AM) Lymph Auto [20.5-51.1 %] 37.2 % (11/13/22 11:54 AM) [place] Auto [1.7-9.3 %] 6.6 % (11/13/22 11:54 AM) Basophil Auto [0.0-0.8 %] 0.9 % *HI* (11/13/22 11:54 AM) BUN [8-26 mg/dL] 11 mg/dL (11/13/22 11:54 AM) UA Color [Yellow] Yellow (11/13/22 11:54 AM) Glucose Level [74-106 mg/dL] 94 mg/dL (11/13/22 11:54 AM) Potassium Level [3.5-5.1 mmol/L] 4.3 mmo l/L (11/13/22 11:54 AM) Baso Absolute [0.0-0.2 K/mcL] 0.0 K/mcL (11/13/22 11:54 AM) MCV [80.0-99.0 fL] 88.0 fL (11/13/22 11:54 AM) UA Urobilinogen [0.2] 0.2 (11/13/22 11:54 AM) UA Bili [Negative] Negative (11/13/22 11:54 AM) UA Ketones [Negative] Negative (11/13/22 11:54 AM) AST [15-41 IntlUnit/L] 23 IntlUnit/L (11/13/22 11:54 AM) ALT [14-54 IntlUnit/L] 19 IntlUnit/L (11/13/22 11:54 AM) MCHC [32.0-36.0 g/dL] 32.2 g/dL (11/13/22 11:54 AM) Osmolality [275-295 mOsm/kg] 279 mOsm/kg (11/13/22 11:54 AM) Sodium Level [134-143 mmol/L] 140 mmol/L (11/13/22 11:54 AM) UA Leuk Est [Negative] Negative (11/13/22 11:54 AM) Lymph Absolute [1.2-3.4 K/mcL] 2.1 K/mcL (11/13/22 11:54 AM) UA Nitrite [Negative] Negative (11/13/22 11:54 AM) UA Glucose [Negative] Negative (11/13/22 11:54 AM) Hct [37.0-52.0 %] 39.7 % (11/13/22 11:54 AM) Calcium Level [8.9-10.3 mg/dL] 9.9 mg/dL (11/13/22 11:54 AM) [place] Absolute [0.1-0.6 K/mcL] 0.4 K/mcL (11/13/22 11:54 AM) Albumin Level [3.5-5.0 g/dL] 4.1 g/dL (11/13/22 11:54 AM) Protein Total [6.5-8.1 g/dL] 7.2 g/dL (11/13/22 11:54 AM) UA Protein [Negative] Negative (11/13/22 11:54 AM) MCH [27.0-31.0 pg] 28.4 pg (11/13/22 11:54 AM) Neutro Absolute [1.4-6.5 K/mcL] 2.9 K/mc L (11/13/22 11:54 AM) Bilirubin Total [0.2-1.2 mg/dL] 0.8 mg/d L (11/13/22 11:54 AM) Hgb [12.0-18.0 g/dL] 12.8 g/dL (11/13/22 11:54 AM) Alk Phos [38-130 IntlUnit/L] 79 IntlUnit /L (11/13/22 11:54 AM) UA Blood [Negative] Negative (11/13/22 11:54 AM) MPV [7.4-10.4 fL] 9.8 fL (11/13/22 11:54 AM) UA Spec Grav 1.015 *NA* (11/13/22 11:54 AM) Platelets [130-400 K/mcL] 171 K/mcL (11/13/22 11:54 AM) CO2 [22-32 mmol/L] 27 mmol/L (11/13/22 11:54 AM) Eos Absolute [0.0-0.2 K/mcL] 0.2 K/mcL (11/13/22 11:54 AM) UA pH 6.50 *NA* (11/13/22 11:54 AM) eGFR Non-AA 94 *NA* (11/13/22 11:54 AM) eGFR AA 94 *NA* (11/13/22 11:54 AM) UA Appear [Clear] Clear (11/13/22 11:54 AM) Chloride Level [98-111 mmol/L] 103 mmol/ L (11/13/22 11:54 AM) RDW-CV [11.5-14.5 %] 13.1 % (11/13/22 11:54 AM) A/G Ratio 1.3 *NA* (11/13/22 11:54 AM) BUN/Creat Ratio [8.0-20.0] 16.2 (11/13/22 11:54 AM) Globulin 3.1 *NA* (11/13/22 11:54 AM) Imm Gran Absolute 0.01 *NA* (11/13/22 11:54 AM) Imm Gran Auto [0.0-0.5 %] 0.2 % (11/13/22 11:54 AM) MRSA Screen -GeneXpert [Negative] Negati ve 1 (11/13/22 11:54 AM) Urine Srce Clean Catch (11/13/22 11:54 AM) MSSA Screen -GeneXpert [Negative] Negati ve 2 (11/13/22 11:54 AM) Creatinine Level [0.44-1.00 mg/dL] 0.68 mg/dL (11/13/22 11:54 AM) Anion Gap [3.0-12.0] 10.0 (11/13/22 11:54 AM) Eos, Auto [0.00-3.00 %] 3.20 % *HI* (11/13/22 11:54 AM) 1Result Comment: Error 1002 Error occurred Error 1002: The temperature difference of 8.5 ??C exceedsthe limit of 5.0 ??C. The temperatures for heaters A and B are 60.3 ??C and 68.8 ??C [id number] Error 1002 Error occurred Error 1002: The temperature difference of 7.0 ??C exceeds the limit of 5.0 ??C. The temperatures for heaters A and B are 61.1 ??C and 68.1 ??C [id number] Error 1002 Error occurred Error 1002: The temperature difference of 5.4 ??C exceeds the limit of 5.0 ??C. The temperatures for heaters A and B are 61.9 ??C and 67.2 ??C [id number] 2Result Comment: Error 1002 Error occurred Error 1002: The temperature difference of 8.5 ??C exceedsthe limit of 5.0 ??C. The temperatures for heaters A and B are 60.3 ??C and 68.8 ??C [id number] Error 1002 Error occurred Error 1002: The temperature difference of 7.0 ??C exceeds the limit of 5.0 ??C. The temperatures for heaters A and B are 61.1 ??C and 68.1 ??C [id number] Error 1002 Error occurred Error 1002: The temperature difference of 5.4 ??C exceeds the limit of 5.0 ??C. The temperatures for heaters A and B are 61.9 ??C and 67.2 ??C [id number] Social History Social History Type Response Tobacco Former tobacco user Tobacco Use:. Stopped age [age] Years. Sex Patient Care team information Personnel Name: PAULO GUILLEN Address: Address: [facility] [address] [place] [address]- [place]
--- OUTSIDE RECORDS SUMMARY | 2023-10-23 01:34 | XMS_ITS | Continuity of Care Document ---
Author Name Unknown Organization [facility] Address [address] [place] [address] Encounter [facility] NBR [id number] Date(s): 10/07/22 - 10/07/22 [facility] [address] [place], [place] [address] Encounter Diagnosis Arthritis of knee, right(Discharge Diagnosis) - 10/07/22 Assessment and Plan Future Appointments Problem List Condition Confirmation Course Effective Dates Status H ealth Status Informant Osteoarthritis of right knee joint Confirmed Active
== END ==
PROVIDERS: PCP Family Medicine; Visit Provider Family Medicine
DX: Z12.31 Encounter for screening mammogram for malignant neoplasm of breast (principal)
CPT/HCPCS: 77063; 77067

== ENCOUNTER 2025-02-22 02:09 | Outpatient (CLI) | payer MEDICARE, BC, SELFPAY ==
--- NOTE | 2025-02-22 06:45 | DI.RAD_ITS ---
Exam(s) XR FOOT LT COMPLETE EXAM: XR FOOT LT COMPLETE CLINICAL HISTORY: Left foot pain,m79.672. TECHNIQUE: 2D digital imaging was performed. Three views. COMPARISON: CR LEFT FOOT COMPLETE from 04/24/2015 FINDINGS: BONES: No acute fracture is present. No bony destructive lesion is seen. Tiny plantar calcaneal spu r. JOINTS: No dislocation present. Joint space narrowing at the tarsal metatarsal joints, greatest at the 2nd tarsal metatarsal joint. Plantar arch is maintained. SOFT TISSUE: Normal. IMPRESSION: Degenerative changes, greatest the 2nd tarsal metatarsal joint. DATA REPOSITORY: RADIATION DOSE DELIVERED:
== END 2025-02-22 02:29 ==
LOC: DI 02:09
PROVIDERS: PCP Family Medicine; Visit Provider Podiatrist
DX: M19.172 Post-traumatic osteoarthritis, left ankle and foot; M25.572 Pain in left ankle and joints of left foot
CPT/HCPCS: 99213; 73630

== ENCOUNTER 2025-03-04 17:44 | Outpatient (REF) | payer MEDICARE, BC, SELFPAY | END 2025-03-04 17:45 | disposition home or self-care (01) | LOC: NCHCN 17:44 | PROVIDERS: PCP Family Medicine; Visit Provider Family Medicine | DX: R30.0 Dysuria (principal); R82.89 Other abnormal findings on cytological and histological examination of urine; B96.29 Other Escherichia coli [E. coli] as the cause of diseases classified elsewhere | CPT/HCPCS: 87077; 87086; 87186 ==

== ENCOUNTER 2025-03-13 10:13 | Emergency (ER) | payer MEDICARE, BC, SELFPAY ==
[2025-03-13] VITALS (7 sets, daily range): BP systolic 151–196; BP diastolic 82–96; PULSE 56–74; RESP 12; TEMP 37; O2SAT 96–99
--- NOTE | 2025-03-13 10:30 | DI.RAD_ITS ---
Exam(s) XR WRIST LT COMPLETE EXAM: XR WRIST LT COMPLETE CLINICAL HISTORY: Foosh injury, deformity. TECHNIQUE: 2D digital imaging was performed. Three views. COMPARISON: No exams were available for comparison FINDINGS: BONES: There is a comminuted intra-articular fracture of the distal radius. There is a full shaft wi dth displacement ventrally as well as overriding of fracture fragments. There is also volar angulati on. There are few small comminuted fragments. The distal ulna appears intact. No bony destructive lesion is seen. JOINTS: The carpal bones are normally aligned. Mild degenerative changes SOFT TISSUE: Severe soft tissue swelling around the wrist. No foreign body. IMPRESSION: Severely displaced comminuted intra-articular fracture of the distal radius. DATA REPOSITORY: RADIATION DOSE DELIVERED:
--- NOTE | 2025-03-13 10:30 | W.ED.GENAD ---
Discharge Plan Disposition Patient Disposition: Home Condition: Stable Discharge Details Clinical Impression: Displaced comminuted fracture of shaft of left radius Primary Care Provider: Michelle Gaines ED Provider: Aysha Johnson Home Meds and New Rx's Prescriptions: No Action glucosamine sulfate 500 MG capsule 500 mg PO DAILY Discharge Instructions Instructions: Radius Fracture (DC), Cast Care ED Additional Instructions: Please keep your arm in the splint. Do not get this wet. Keep your arm elevated above the level of your heart and apply ice to reduce swelling and pain. Dr. Tillman in his office should contact you tomorrow and schedule surgery for Friday or Friday. Please take Tylenol or Ibuprofen with food every 4-6 hours as needed for pain and swelling. Thank you for allowing us to care for you today. Referrals: Scott Tillman MD [ [facility] STAFF PHYSICIAN] - 3 days HPI General Mode of arrival: ambulatory. Date/Time Provider Initiated Documentation: 03/13/25 10:27. Limitations to Documentation: no limitations. Information obtained by: patient, RN notes reviewed and old records reviewed. HPI Narrative: 70-year-old female presents to the ER with a chief complaint of left distal wrist injury after a mechanical fall prior to arrival. Patient states she was in the barn and tripped and is unsure what happened after that. Denies hitting her head. She does have deformity noted to her left wrist and swelling. She did not take any medications prior to arrival, she declined any analgesic at this time. Distal CMS intact. Proximal elbow and shoulder within normal limits no tenderness with palpation. 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 Related Data Home Medications ?Medication ?Instructions ?Recorded ?Confirmed glucosamine sulfate 500 mg capsule 500 mg PO DAILY 01/26/13 03/13/25 Allergies Allergy/AdvReac Type Severity Reaction Status Date / Time esmolol (Esmolol) Allergy Severe Unknown Verified 03/13/25 11:17 succinylcholine Allergy Severe Anaphylaxis Verified 03/13/25 11:17 (Succinylcholine) General Stated Complaint: Orthopedic HERNANDEZ: 3 Review of Systems Musculoskeletal Musculoskeletal: Reports arthralgias and Reports joint swelling Exam Extrem General: normal to inspection Left upper extremity: normal capillary refill, shoulder/upper arm Details: inspection abnormal, elbow/forearm Details: normal to inspection and wrist Details: abnormal to inspection, tenderness, swelling, deformity Details: bayonet, radial pulse present and ulnar pulse present Course Vital Signs Vital signs: Vital Signs Temperature 37.0 C 03/13/25 10:23 Pulse 74 03/13/25 10:23 Respiratory Rate 12 03/13/25 10:23 Blood Pressure 196/96 H 03/13/25 10:23 Pulse Oximetry 98 03/13/25 10:23 Temperature 37.0 C 03/13/25 10:23 Temperature Source Oral 03/13/25 10:23 Pulse 74 03/13/25 10:23 Respiratory Rate 12 03/13/25 10:23 Blood Pressure 196/96 H 03/13/25 10:23 Blood Pressure Position Sitting 03/13/25 10:23 Pulse Oximetry 98 03/13/25 10:23 Oxygen Delivery Method Room Air 03/13/25 10:23 Oxygen Flow Rate 0 03/13/25 10:23 Pain Level 8 03/13/25 10:23 Procedure Nerve Block 1st Nerve Block: Date of Procedure: 03/13/25 Time of procedure: 11:35 Provider that performed the procedure: Aysha Johnson Indication: Local pain control and Procedural Standard Time Out Performed: Yes Patient Consented: Verbally Local Anesthetic: Lidocaine 1% and With Epi Amount of anethetic used(mL): 10 Sterility: Sterile Laterality: Left Nerve Blocks: hematoma block Ultrasound: Not used. Nerve Catheter Medication Infusion: None Started Nerve Stimulator: Not Used Paresthesia: Left Paresthesia Duration: Transient Post Procedure Pain Score (0-10): 2 Procedure Tolerated: No Complications and Patient tolerated well Procedure Outcome: Successful Procedure Description/Note: 10 mL of 1% lidocaine with epinephrine placed dorsally to the hematoma of the fracture. Patient tolerated well. Medical Decision Making 70-year-old female presents to the ER with a chief complaint of left distal wrist injury after a mechanical fall prior to arrival. Patient states she was in the barn and tripped and is unsure what happened after that. Denies hitting her head. She does have deformity noted to her left wrist and swelling. She did not take any medications prior to arrival, she declined any analgesic at this time. Distal CMS intact. Proximal elbow and shoulder within normal limits no tenderness with palpation. 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 XRay ordered offered hematoma block, versus conscious sedation. Declined analgesic at this time, Contacted Dr. Tillman orthopedics who recommends reduction with extended volar splint, will have patient follow-up for possible surgical repair. Discussed procedure and plan of care with patient with local hematoma block versus conscious sedation. Patient is hesitant to take any medications that would make her sleepy. Will attempt hematoma block finger traps and reduction. 1136: Hematoma block performed see procedure note. Patient tolerated well. Patient placed in finger traps with counterweight traction. 1201:Attempted manual reduction with finger traps and hematoma block patient tolerated with difficulty. Will give IV Toradol, Tylenol p.o. and fentanyl IV. Patient placed back in the finger traps. Manual reduction of left wrist with traction countertraction,, ordered postreduction x-rays, volar plaster splint applied in extended position. Distal CMS intact post splint application. Unsuccessful reduction noted, informed Dr. Tillman who was able to review the images. Patient currently is neurovascularly intact and okay for follow-up for surgical reduction. Dr. Tillman will call and schedule surgery for Friday or Friday. I will discuss plan of care with patient at home care. Patient alert and oriented hemodynamically stable at discharge. Instructed on home care verbalized understanding. This text was generated using [employer] system, please disregard any oddities of phrase or misspellings. Imaging Data Radiologic Study: Imaging: X-Ray Radiologist's impression: TECHNIQUE: Imaging protocol: Radiologic exam of the left wrist. Views: 3 or more views. COMPARISON: No relevant prior studies available. FINDINGS: Bones/joints: Comminuted, intra-articular and volar displaced distal radius fracture. The ulna is intact. Soft tissues: Soft tissue swelling. IMPRESSION: Comminuted, intra-articular and displaced distal radius fracture. Thank you for allowing us to participate in the care of your patient. Dictated and Authenticated by: Carson Pearl MD Quality:SDOH Health Related Social Needs: No Data to Display PFSH All Active Problems (Updated 03/13/25 @ 13:30 by Aysha Johnson NP) Displaced comminuted fracture of shaft of left radius (Acute) Pain in left foot (Acute) Post-traumatic arthritis of left foot (Acute) Pain in joint, foot, left (Acute) pseudocholinesterase deficiency (Active) Medical History PSEUDO CHOLINE ESTERASE DIFFICIENCY Complication of anesthesia Surgical History TUBAL LIGATION (~1988) HYSTERECTOMY (~1999) ELBOW TENDEON REPAIR (~2002) Family History Mother Personal history of malignant neoplasm LUNG Brother Alcoholism Grandfather Alcoholism Grandmother Diabetes Grandmother Diabetes Uncle Alcoholism Grandfather Alcoholism Aunt Personal history of malignant neoplasm BREAST Social History Smoking/Tobacco Use Status: Former Tobacco Use Smoking risk assessment performed?: Yes Alcohol Intake: never Drug use: Never Substance use type: does not use Do you feel safe at home: Yes Do you feel safe in your relationship?: Yes
--- NOTE | 2025-03-13 11:05 | DI.VRAD_ITS ---
PROCEDURE INFORMATION: Exam: XR Left Wrist Exam date and time: 03/13/2025 10:51 AM Age: 70 years old Clinical indication: Other: Foosh injury, deformity TECHNIQUE: Imaging protocol: Radiologic exam of the left wrist. Views: 3 or more views. COMPARISON: No relevant prior studies available. FINDINGS: Bones/joints: Comminuted, intra-articular and volar displaced distal radius fracture. The ulna is intact. Soft tissues: Soft tissue swelling. IMPRESSION: Comminuted, intra-articular and displaced distal radius fracture. Dictated and Authenticated by: Carson Pearl MD. Orderin Elizabeth Olmstead MD
[2025-03-13] MEDS: Lidocaine 1% Pres-Free W/EPI 1/200,000 30 ML VIAL IJ (12:22)
[2025-03-13] MEDS: Ketorolac 30 MG/ML VIAL IVP (12:22)
[2025-03-13] MEDS: Acetaminophen 500 MG TAB 1000 MG PO (12:22)
[2025-03-13] MEDS: Normal Saline Flush 10 ML SYR IVP (12:23)
[2025-03-13] MEDS: fentaNYL 100 MCG/2 ML VIAL 50 MCG IVP (12:44)
--- NOTE | 2025-03-13 12:45 | DI.RAD_ITS ---
Exam(s) XR WRIST LT LIMITED EXAM: XR WRIST LT LIMITED CLINICAL HISTORY: Post reduction. TECHNIQUE: 2D digital imaging was performed. Three views. COMPARISON: CR,XR XR WRIST LT COMPLETE from 03/13/2025 FINDINGS: A volar splint is now in place which somewhat obscures the bony detail. There has been no visible change in the alignment of the displaced, comminuted intra-articular fractu re of the distal radius. Marked soft tissue swelling is again noted. IMPRESSION: Stable fracture alignment. DATA REPOSITORY: RADIATION DOSE DELIVERED:
--- NOTE | 2025-03-13 13:36 | DI.VRAD_ITS ---
PROCEDURE INFORMATION: Exam: XR Left Wrist Exam date and time: 03/13/2025 1:15 PM Age: 70 years old Clinical indication: Other: Post reduction TECHNIQUE: Imaging protocol: Radiologic exam of the left wrist. Views: 1 or 2 views. COMPARISON: CR XR WRIST LT COMPLETE 03/13/2025 10:51 AM FINDINGS: Bones/joints: There is persistent anterior fracture displacement of the radial articular surface. The shaft of the radius and ulna are dorsally displaced in relation to the proximal carpal row. Soft tissues: Soft tissue swelling. IMPRESSION: Persistent anterior fracture/displacement of the radial articular surface. The shaft of the radius and ulna are dorsally displaced in relation to the proximal carpal row. Dictated and Authenticated by: Carson Pearl MD. Orderin Elizabeth Olmstead MD
== END 2025-03-13 13:50 | disposition home or self-care (01) ==
PROVIDERS: Emergency Provider Registered Nurse Emergency; PCP Family Medicine
DX: S52.572A Other intraarticular fracture of lower end of left radius, initial encounter for closed fracture (principal); W01.0XXA Fall on same level from slipping, tripping and stumbling without subsequent striking against object, initial encounter; Y93.01 Activity, walking, marching and hiking; Y92.71 Barn as the place of occurrence of the external cause
CPT/HCPCS: 96374; 96375; 99283; 25605; 73100; 73110; J1885; J2004; J3010

== ENCOUNTER 2025-03-15 13:22 | Day surgery (SDC) | payer MEDICARE, BC, SELFPAY ==
[2025-03-15] VITALS (11 sets, daily range): BP systolic 126–163; BP diastolic 63–108; PULSE 54–76; RESP 12–21; TEMP 35.9–36.6; O2SAT 96–100; BMI 30.1
--- NOTE | 2025-03-15 13:28 | W.PREOPHP ---
Assessment and Plan Assessment and plan (1) Closed fracture of left distal radius: Status: Acute Assessment and plan: Felicita is a 70-year-old female who has a comminuted, intra-articular, volarly displaced distal radius fracture. Given the characteristics of the fracture and her active lifestyle would recommend proceeding with operative fixation. She is here to for that today. I once again reviewed the tentacle details of the surgery. I discussed expectations for recovery rehabilitation. I reviewed risk to include bleeding, infection, pain, stiffness, hardware prominence, hardware failure, damage to nerves and vessels, damage to tendons including delayed tendon rupture, damage to nerves including superficial nerves. Despite these risk, she elects to proceed. History of Present Illness History of Present Illness Chief Complaint: Left Distal Radius Fracture Narrative: Felicita is a 70-year-old active female who tripped and fell onto her left arm. She is unclear exactly how she fell but she had notable deformity and pain immediately following. She was seen in the emergency department on March 13 and diagnosed with a comminuted, intra-articular and volarly displaced distal radius fracture. Attempted reduction was performed and she was splinted. She was neurovascular intact and sent home and I was called in consultation. I called Felicita on 03/14 to discuss her case and recommended surgery given the displaced nature of the fracture and its volar orientation. She is also quite active, for the reason to proceed with surgical fixation. I did discuss nonoperative treatment would still require a trip to the operating room for closed reduction and casting. She denies any current numbness or tingling. She has had some swelling of the fingers. She denies any pain within the elbow or shoulder. She has been shortness of breath. No recent illness. She does have pseudocholinesterase deficiency, discovered during a minor gynecological procedure many years ago. Since then she has had multiple procedures including bilateral hip replacements without difficulty. Review of Systems All systems reviewed & are unremarkable except as noted in HPI and below PFSH All Active Problems Closed fracture of left distal radius (Acute) Displaced comminuted fracture of shaft of left radius (Acute) Pain in left foot (Acute) Post-traumatic arthritis of left foot (Acute) Pain in joint, foot, left (Acute) pseudocholinesterase deficiency (Active) Medical History PSEUDO CHOLINE ESTERASE DIFFICIENCY Complication of anesthesia Surgical History History of knee replacement procedure of right knee Hx of bilateral hip replacements TUBAL LIGATION (~1988) HYSTERECTOMY (~1999) ELBOW TENDEON REPAIR (~2002) Family History Mother Personal history of malignant neoplasm LUNG Brother Alcoholism Grandfather Alcoholism Grandmother Diabetes Grandmother Diabetes Uncle Alcoholism Grandfather Alcoholism Aunt Personal history of malignant neoplasm BREAST Social History Smoking/Tobacco Use Status: Former Tobacco Use Quit Date: 11/10/81 Smoking risk assessment performed?: Yes Alcohol Intake: never Drug use: Never Substance use type: does not use Housing: house Additional Social history: UT[employer] Meds Allergies and Home Medications Allergies Allergy/AdvReac Type Severity Reaction Status Date / Time esmolol (Esmolol) Allergy Severe Unknown Verified 03/14/25 14:23 succinylcholine Allergy Severe Anaphylaxis Verified 03/14/25 14:23 (Succinylcholine) Home Medications ?Medication ?Instructions ?Recorded ?Confirmed ?Type glucosamine sulfate 500 mg capsule 500 mg PO DAILY 01/26/13 03/14/25 History multivitamin 1 tab PO DAILY 03/14/25 03/14/25 History Exam Const General: cooperative, healthy appearing, comfortable and no acute distress Nutritional Appearance: average body habitus Resp Effort & Inspection: normal respiratory effort Auscultation: clear to auscultation bilaterally Cardio Rate: regular rate Rhythm: regular rhythm Extrem Other: Left upper extremity is in a splint. Fingers are swollen and slightly cool but they are compressible. Cap refill less than 3 seconds. Sensation intact to light touch of the median, radial, ulnar nerve. Splint is windowed and the skin is inspected which does not show any signs of defects or lacerations. No pain to palpation about the elbow. Results Imaging Imaging Studies: X-ray of the left wrist shows a volarly displaced distal radius fracture with some comminution seen volarly as well as extending into the articulation with the carpus. The carpus itself is displaced volarly with the distal radial fragment.
[2025-03-15] MEDS: Celecoxib 200 MG CAP 400 MG PO (13:58)
[2025-03-15] MEDS: Acetaminophen 500 MG TAB 1000 MG PO (13:58)
[2025-03-15] MEDS: Lactated Ringers 1,000 ML 80 ML IV (14:13)
--- NOTE | 2025-03-15 14:14 | W.ANESPRE ---
General Info Date of Service Date Performed: 03/15/25 Height: 5 ft 9 in Weight: 92.6 kg Body Mass Index (BMI): 30.1 Surgical Procedure: Operation Date: 03/15/25 16:10 Proposed Procedure Side Surgeon p Wrist ORIF Distal Radius Left Scott Tillman MD Actual Procedure Side Surgeon p Wrist ORIF Distal Radius Left Scott Tillman MD Pre-Op Diagnosis Post-Op Diagnosis Closed fracture of left distal radius Meds Allergies and Home Medications Allergies Allergy/AdvReac Type Severity Reaction Status Date / Time esmolol (Esmolol) Allergy Severe Unknown Verified 03/15/25 13:52 succinylcholine Allergy Severe Anaphylaxis Verified 03/15/25 13:52 (Succinylcholine) Home Medication ?Medication ?Instructions ?Recorded glucosamine sulfate 500 mg capsule 500 mg PO DAILY 01/26/13 multivitamin 1 tab PO DAILY 03/14/25 Current Visit Medications: Current Medications Generic Name Dose Route Start Last Admin Trade Name Freq PRN Reason Stop Dose Admin Acetaminophen 1,000 mg 03/15/25 06:00 03/15/25 13:58 Acetaminophen 500 Mg Tab PO 03/15/25 23:59 1,000 mg PREOP OLIVER Administration Celecoxib 400 mg 03/15/25 06:00 03/15/25 13:58 Celecoxib 200 Mg Cap PO 03/15/25 23:59 400 mg PREOP OLIVER Administration Ringer's Solution 1,000 mls @ 80 mls/hr 03/15/25 06:00 03/15/25 14:13 IV 03/15/25 23:59 80 mls/hr INFUSION OLIVER Administration Cefazolin Sodium/Dextrose 2 gm in 50 mls @ 100 mls/hr 03/15/25 06:00 Ancef Duplex IVPB 03/15/25 23:59 PREOP OLIVER Tranexamic Acid/Sodium Chloride 1,000 mg in 100 mls @ 600 mls/hr 03/15/25 06:00 IVPB 03/15/25 23:59 DIRECTED OLIVER IV Miscellaneous Supplies 1 each 03/15/25 06:00 Iv Access IV 03/15/25 23:59 DIRECTED OLIVER Sodium Chloride 0 ml 03/15/25 06:00 Normal Saline Flush 10 Ml Syr IV 03/15/25 23:59 PRN PRN Sodium Chloride 0 ml 03/15/25 06:00 Normal Saline 10 Ml Vial IJ 03/15/25 23:59 DIRECTED PRN Sterile Water 0 ml 03/15/25 06:00 Water,Injection,Sterile 10 Ml Vial IJ 03/15/25 23:59 DIRECTED PRN PFSH Active Problems Active Problems: Problem Status Onset Code Closed fracture of left distal radius Acute S52.502A Displaced comminuted fracture of shaft of left radius Acute S52.352A Pain in left foot Acute M79.672 Post-traumatic arthritis of left foot Acute M19.172 Pain in joint, foot, left Acute M25.572 pseudocholinesterase deficiency Active Medical History Medical History PSEUDO CHOLINE ESTERASE DIFFICIENCY Complication of anesthesia Surgical History Surgical History History of knee replacement procedure of right knee Hx of bilateral hip replacements TUBAL LIGATION (~1988) HYSTERECTOMY (~1999) ELBOW TENDEON REPAIR (~2002) Tobacco Smoking/Tobacco Use Status: Former Tobacco Use Passive smoking exposure: No Alcohol Alcohol Intake: never Substance Use Substance use: Never Substance use type: does not use Vital Signs and Lab Results Vital Signs Most Recent Vital Signs in EMR: Most Recent Vital Signs Temp Pulse Resp BP Pulse Ox 36.3 C L 63 18 149/80 H 98 03/15/25 13:54 03/15/25 13:54 03/15/25 13:54 03/15/25 13:54 03/15/25 13:54 Lab Results Blood Type / Crossmatch: No Data to Display Complete Blood Count: No Data to Display Complete Metabolic Panel: No Data to Display Liver Function Panel: No Data to Display Coagulation Panel: No Data to Display Cardiac Panel: No Data to Display Arterial Blood Gas: No Data to Display Venous Blood Gas: No Data to Display Pancreas Panel: No Data to Display Thyroid Panel: No Data to Display Infectious Disease: No Data to Display Blood Cultures: No Data to Display Toxicology Panel: No Data to Display Anesthesia Assessment and Plan Anesthesia History Personal History: Pseudocholinesterase Deficiency Family History: No Family History of Anesthesia Complications Exercise Tolerance Exercise Tolerance: Metabolic Equivalents>4 Pertinent Negatives Pertinent Negatives: No Symptoms of GERD Cardiac & Pulmonary Exam Cardiac Exam: Normal S1/S2 Heart Sounds Pulmonary Exam: Clear Bilateral Breath Sounds Implantable Cardiac Device Does patient have a Pacemaker or an ICD?: No Airway Exam Known Difficult Airway: No Mallampati Class: 2 Mouth Opening: Normal (> 3cm) Thyromental Distance: Greater than 3 cm Neck Range of Motion: Full ROM Neck Circumference: Normal Teeth Condition: Normal Dentition ASA Classification ASA Score: ASA 3 Emergency Case?: No NPO Status NPO Status: NPO Clears >2 hours, Solids >8 hours Anesthesia Plan Resuscitation Status: Full Code Anesthesia Technique: General Anesthesia Airway Planned: Natural Airway Pain Management: Surgeon and patient request nerve block Monitors Used: Standard Monitors
--- NOTE | 2025-03-15 15:53 | W.PM.DSUDISC ---
Date of service: 03/15/25 Discharge Plan Disposition Patient Disposition: Home Condition: Good Discharge Details Reason For Visit: Left distal radius fracture Attending Provider: Scott Tillman Primary Care Provider: Michelle Gaines Home Meds and New Rx's Prescriptions: New acetaminophen 500 mg tablet 500 mg PO Q6H PRN (Reason: pain) Qty: 60 2RF hydrocodone-acetaminophen 5-325 mg tablet 1 tab PO Q6H PRN (Reason: severe pain) Qty: 6 0RF Rx Instructions: Take one tablet up to every 6 hours as needed for severe postoperative pain ibuprofen 600 mg tablet 600 mg PO TID PRN (Reason: pain) Qty: 60 0RF Continued glucosamine sulfate 500 MG capsule 500 mg PO DAILY multivitamin Tablet 1 tab PO DAILY Discharge Instructions Additional Instructions: Wrist Fracture Fixation Discharge Instructions Activity: You should keep the hand/wrist elevated as much as possible for the first few days. You may use the other fingers as tolerated but avoid trying to do too much too soon. You may perform light activities with the splint in place. Dressing/Cast: Your splint should stay in place at all times. Do NOT get it wet. You may loosen the GINNY wrap if you feel it is too tight and then rewrap more loosely. Medications: - You should take Tylenol and Ibuprofen for baseline pain control. - You have been prescribed a stronger pain medication, Hydrocodone, for breakthrough pain. - You may apply ice over the wrist, just double bag so it doesn't get wet. Follow-up: 10-14 days Stand Alone Forms: Anesthesia Discharge Inst., Bogdan Foote ([facility]) Referrals: Scott Tillman MD [ [facility] STAFF PHYSICIAN] - 03/28/25 3:00 pm Equipment/Supplies: Splint Activity:: Elevate Remove Dressings/Wound Care:: Do Not Remove Shower/Bathe:: Cover Diet:: As Tolerated Discharge Orders Discharge Orders: Discharge Order (Routine); Ordered 03/15/25 Ordered By: Kailyn Monaco DS: Diagnosis Discharge Diagnosis (1) Closed fracture of left distal radius: Status: Acute
--- NOTE | 2025-03-15 16:12 | W.ANESNERVE ---
Nerve Block Single Injection Procedure Date and Time Date Performed: 03/15/25 Procedure Start: 16:02 Location Where Procedure Performed Procedure Location: Day Surgery Unit Reason Performed: Postoperative Analgesia Requesting Provider: Scott Tillman Timeout Performed Timeout Performed: Yes Monitoring Used ECG, Blood Pressure and SpO2 Sterility Sterility: Hand Hygiene, Surgical Cap, Surgical Mask, Sterile Gloves and Chlorhexidine Sedation Given During Procedure Sedation Given (Indicate Dose Given): Versed IV Dose:: 1 mg Patient Mental Status Patient Mental Status: Sedate with meaningful communication Nerve Block 1st Nerve Block: Laterality: Left Block Type: Supraclavicular Ultrasound Image Saved?: Yes Needle / Catheter Used: 100mm SonoPlex II Local Anesthetic Bolus (Indicate Dose Given): Lidocaine used for local infiltration of skin, Bupivacaine 0.5% Dose:: 10 mL and Exparel Dose:: 10 mL Additives (Indicate Dose Given): None Ultrasound: Sterile probe cover and gel used Nerve Stimulator: No twitch or parasthesia noted < 0.5 mA (0.6) Paresthesia: None Procedure Tolerated: No Complications Procedure Outcome: Successful Procedure Comment: Prior to block discussed risks and effects of block. Discussed risk of nerve injury (1:5000 for permanen), block failure. Performed By: Patrick Johnston
--- NOTE | 2025-03-15 16:15 | DI.RAD_ITS ---
Exam(s) XR WRIST LT LIMITED EXAM: XR WRIST LT LIMITED CLINICAL HISTORY: FRACTURED LEFT WRIST. TECHNIQUE: 2D and realtime digital imaging was performed. COMPARISON: CR,XR XR WRIST LT LIMITED from 03/13/2025 FINDINGS: Hard copy images show placement of a fixation plate along the volar aspect of the distal radius for f racture fixation. Please see procedure note for details. Fluoro time: 2 minutes 19 seconds RADIATION DOSE DELIVERED: lisa Broussard=1.56 mGy
--- NOTE | 2025-03-15 16:27 | W.PM.OP ---
Operative Note Operative Note PRE-OP DIAGNOSIS: Left Distal Radius Fracture POST-OP DIAGNOSIS: same PROCEDURE: Open Reduction and Internal Fixation of Left Distal Radius Fracture, Intra-Articular SURGEON: Scott Tillman [employer] MACHINE OPERATOR: Sana See ANESTHESIA TYPE: General LMA/ETT and Primary Nerve Block Refer to Anesthesia Record ESTIMATED BLOOD LOSS: 10 PATHOLOGY: none sent COMPLICATIONS: None Patient was transported to: PACU Patient's condition: stable Indications: Felicita is a 70 year old female who suffered an intra-articular distal radius fracture. Given the deformity, displacement, fracture pattern, and effect on daily function, I recommended surgical fixation. I reviewed the risk of the procedure to include bleeding, infection co-pay, stiffness, damage to nerves and vessels, damage to muscles and tendons, malunion, nonunion, hardware prominence, tendon rupture, need for repeat procedures. Despite these risks, the patient elected to proceed. Findings: There is a distal radius fracture which had 3 articular segments. It was reduced and fixed with a Synthes volar locking plate. Procedure Description: Felicita was greeted in the preoperative holding area. The correct patient and site was confirmed and marked. The history and physical was updated. The consent was reviewed the patient and signed. She was adminstered a regional anesthetic, supraclavicular block. The patient was taken to the operating room and placed in the supine position. All bony problems were well-padded. The left arm was placed onto a radiolucent hand table. A nonsterile tourniquet was placed high up on the arm. Prophylactic antibiotics in the form of cefazolin were administered. The left arm was prepped with ChloraPrep and draped in a standard fashion. A timeout was performed for safe surgery. A standard longitudinal incision was made overlying the flexor carpi radialis tendon starting at the distal wrist crease and moving proximally. The skin was incised sharply. The flexor carpi radialis tendon and its sheath is identified. The sheath was opened. The tendon was moved ulnarly in the floor of the sheath was incised. Blunt dissection the flexor pollicis longus muscle belly and tendon were also made radially exposing the pronator quadratus and the distal radius. The printer quadratus was elevated with an ulnar-based flap. This exposed the volar distal radius and the fracture. A gracia elevator was used for full exposure of the volar surface of the distal radius. The primary fracture line was exposed. Using a series of elevators, curettes, and knife, the fracture was fully debrided of any fibrous tissue and callus formation. I used a freer elevator to help mobilize the fragments. There was a single interposed stellate fragment of the volar cortex which was loose with associated cancellous bone. This was displaced in horizontal direction. With mobilization of the fracture fragments, I was able to mobilize the fracture and reduce this. This interfragmentary stellate fragment was able to be placed back into its post location in a near anatomic position and supporting the volar cortex. With this reduction held, I placed a single K wire through the radial styloid into the radial metaphysis. Fluoroscopy is utilized to show that the reduction was near-anatomic and held appropriately with the K wire. A wide 3-hole Synthes volar locking plate was then selected and placed onto the volar surface of the distal radius. A single K wire was placed through the distal end. Fluoroscopy was once again used to confirm appropriate positioning of the plate on the distal radius. A single nonlocking screw was placed to the distal portion of the plate securing the plate against the bone of the distal radial metaphysis. Once again, the plate was evaluated to make sure it was aligned appropriately. The single screw was also checked to make sure it was in appropriate positioning for trajectory of future screws. The remainder of the screws within the volar locking plate were filled with locking screws. These were made sure not to penetrate the dorsal cortex. However, there was a shelf of bone dorsally which was difficult to gain control. Once these were applied the proximal portion of the plate was further reduced down onto the shaft by the placement of a nonlocking 2.4 mm cortical screw. This acted as a buttress to the volar, distal fragment segment. Fluoroscopy was then used against confirm appropriate reduction. Nonlocking screws were placed within the 3 shaft screw holes. Final x-rays were obtained which demonstrated adequate reduction and positioning of hardware. The dorsal sunrise view was also obtained to ensure correct sizing of screws. The wound was then thoroughly irrigated. The pronator quadratus was reapproximated with a 0 Vicryl. The tourniquet was released and there was no notable vascular injury. The fingers were warm and well-perfused. The deep dermal layer was closed with a 3-0 Vicryl. The skin was closed with 4-0 nylon. The wound was dressed with Xeroform, 4 x 4's, web roll. A short arm splint was applied. At the end the case all counts are correct. Patient was transferred back to the PACU in stable condition. Date of Procedure: 03/15/25
[2025-03-15] MEDS: ceFAZolin 2 GM/50 ML BAG IVPB (16:33)
[2025-03-15] MEDS: TRANEXAMIC ACID/SOD. CHL. 1,000 MG/100 ML BAG 600 MG IVPB (16:43)
[2025-03-15] MEDS: Bupivacaine 0.5% Pres-Free W/EPI 30 ML VIAL (16:48)
--- NOTE | 2025-03-15 18:15 | W.ANESPOSTOP ---
Postoperative Evaluation Date, Time and Location Date Performed: 03/15/25 Time Performed: 18:15 Patient Location: PACU Vital Signs Most Recent Imported Vital Signs: Most Recent Vital Signs Temp Pulse Resp BP Pulse Ox 36.2 C L 59 L 20 139/85 97 03/15/25 18:05 03/15/25 18:05 03/15/25 18:05 03/15/25 18:05 03/15/25 18:05 Pain Score Most Recent Pain Score: Most Recent Pain Score Pain Level 0 03/15/25 18:05 Assessment Mental Status: Awake (Alert & Oriented to Patient Baseline) Airway and Respiratory Function: Patent airway with normal (patient baseline) respiratory exam Cardiovascular Function: Hemodynamically Stable Hydration Status: Adequately Hydrated Nausea & Vomiting: No Nausea or Vomiting Pain: Pt. Denies Any Pain Peripheral Nerve Block: Regional nerve block not resolved at time of post operative discharge (Partial coverage, reports some sensory in hand, able to feel temperature, strong motor blockade.)
== END 2025-03-15 21:00 | disposition home or self-care (01) ==
LOC: SUR 15:54 → MS 18:21
PROVIDERS: PCP Family Medicine; Visit Provider Student in an Organized Health Care Education/Training Program
PROC: (CPT 25609; principal; 2025-03-15 16:00)
DX: S52.502A Unspecified fracture of the lower end of left radius, initial encounter for closed fracture (principal); W19.XXXA Unspecified fall, initial encounter; G89.18 Other acute postprocedural pain
CPT/HCPCS: 25609; C1889; 64415; 73100; J0665; J0666; J0690; J1100; J2250; J2405; J2704

== ENCOUNTER 2025-03-28 15:34 | Outpatient (CLI) | payer MEDICARE, BC, SELFPAY ==
--- NOTE | 2025-03-28 14:45 | DI.RAD_ITS ---
Exam(s) XR WRIST LT LIMITED EXAM: XR WRIST LT LIMITED INDICATION: S/P ORIF L WRIST. COMPARISON: CR,XR XR WRIST LT COMPLETE from 03/13/2025 CR XR WRIST LT LIMITED from 03/15/2025 TECHNIQUE: 2D digital imaging was performed. Two views. FINDINGS: Stable alignment of distal radial fracture with hardware in place. Soft tissue swelling remains pres ent. DATA REPOSITORY: RADIATION DOSE DELIVERED:
== END 2025-03-28 15:35 | disposition home or self-care (01) ==
LOC: DIORS 15:55
PROVIDERS: PCP Family Medicine; Referring Provider Family Medicine; Visit Provider Physician Assistant
DX: S52.502D Unspecified fracture of the lower end of left radius, subsequent encounter for closed fracture with routine healing (principal); X58.XXXD Exposure to other specified factors, subsequent encounter
CPT/HCPCS: 99024; 73100

== ENCOUNTER → 2025-04-20 09:16 | Outpatient (BNVA) | payer MEDICARE, BC, SELFPAY | PROVIDERS: PCP Family Medicine; Referring Provider Family Medicine; Visit Provider Podiatrist | DX: M25.572 Pain in left ankle and joints of left foot (principal); M19.172 Post-traumatic osteoarthritis, left ankle and foot | CPT/HCPCS: 99213 ==

== ENCOUNTER 2025-04-25 14:38 | Outpatient (CLI) | payer MEDICARE, BC, SELFPAY ==
--- NOTE | 2025-04-25 14:00 | DI.RAD_ITS ---
Exam(s) XR WRIST LT LIMITED EXAM: XR WRIST LT LIMITED CLINICAL HISTORY: f/u L DISTAL RAD FX. TECHNIQUE: 2D digital imaging was performed. Three views. COMPARISON: CR,XR XR WRIST LT LIMITED from 03/13/2025 CR XR WRIST LT LIMITED from 03/15/2025 CR XR WRIST LT LIMITED from 03/28/2025 FINDINGS: BONES: Stable fracture and hardware alignment. Continued fracture healing. No bony destructive lesion is seen. JOINTS: The carpal bones are normally aligned. Degenerative changes. SOFT TISSUE: Normal. IMPRESSION: Continued fracture healing. DATA REPOSITORY: RADIATION DOSE DELIVERED:
== END 2025-04-25 14:39 | disposition home or self-care (01) ==
LOC: DIORS 14:38
PROVIDERS: PCP Family Medicine; Referring Provider Family Medicine; Visit Provider Student in an Organized Health Care Education/Training Program
DX: S52.502D Unspecified fracture of the lower end of left radius, subsequent encounter for closed fracture with routine healing (principal); X58.XXXD Exposure to other specified factors, subsequent encounter
CPT/HCPCS: 99024; 73100

== ENCOUNTER 2025-06-06 14:25 | Outpatient (CLI) | payer MEDICARE, BC, SELFPAY ==
--- NOTE | 2025-06-06 14:00 | DI.RAD_ITS ---
Exam(s) XR WRIST LT LIMITED EXAM: XR WRIST LT LIMITED CLINICAL HISTORY: F/U L DISTAL RAD FX. TECHNIQUE: 2D digital imaging was performed. COMPARISON: CR XR WRIST LT LIMITED from 04/25/2025 FINDINGS: Two views Position of the distal radius volar fixation plate is stable. No evidence of hardware loosening nor migration. No evidence of osteomyelitis. Fracture site remains stable. There is no significant ulnar variance. On the AP view the scapholunate distance appears slightly wide, possibly significant with respect to the scapholunate ligament. There is mild degenerative change in the triscaphe joint. IMPRESSION: Stable appearance of the distal radius hardware. Slight widening of the scapholunate distance. DATA REPOSITORY: RADIATION DOSE DELIVERED:
== END 2025-06-06 14:26 | disposition home or self-care (01) ==
LOC: DIORS 14:25
PROVIDERS: PCP Family Medicine; Referring Provider Family Medicine; Visit Provider Student in an Organized Health Care Education/Training Program
DX: S52.502A Unspecified fracture of the lower end of left radius, initial encounter for closed fracture (principal); X58.XXXA Exposure to other specified factors, initial encounter
CPT/HCPCS: 99024; 73100

== ENCOUNTER 2025-06-21 01:04 | Outpatient (CLI) | payer MEDICARE, BC, SELFPAY ==
--- NOTE | 2025-06-21 | DI.MAMMO_ITS ---
Exam(s) MAMMO SCREENING EXAM: MAMMO SCREENING CLINICAL HISTORY: Screening, Z12.31 TECHNIQUE: Mammograms were interpreted according to the usual protocol including computer analysis with CAD system, tomosynthesis and C-view imaging. COMPARISON: 2017 through 2022 FINDINGS: The breasts are composed of heterogeneously dense fibroglandular densities, Breast Density category C. No suspicious masses or suspicious microcalcifications are seen. No skin thickening or abnormal axillary lymph nodes are seen. There has been no significant change from prior exams. IMPRESSION: BI-RADS Category 1, Negative mammogram. Yearly screening mammography is recommended. Breast Density: Category C - The breasts are heterogeneously dense, which may obscure small masses. Breast density Category C or D implies that the patient has dense breast tissue. Dense breast tissue can make it harder to find cancer on a mammogram. Dense breast tissue is also associated with an increased risk of breast cancer. This information about the result of the mammogram report was provided to the patient to raise their awareness. Use this report when you speak with the patient about their risks for breast cancer, which includes their family history. At that time, you may recommend additional screening tests (Ultrasound or MRI) as these tests may add significant information. A negative radiographic report should not delay biopsy if a dominant or clinically suspicious mass is present. Up to ten percent of cancers are not identified on mammography. A negative report may reinforce clinical impression. Adenosis and dense breasts may obscure an underlying neoplasm. False positive reports average 6 to 10%.
== END 2025-06-21 01:24 ==
LOC: DI 01:04
PROVIDERS: PCP Family Medicine; Visit Provider Family Medicine
DX: Z12.31 Encounter for screening mammogram for malignant neoplasm of breast (principal); R92.333 Mammographic heterogeneous density, bilateral breasts
CPT/HCPCS: 77063; 77067